=== PATIENT | female | born 1990 | race Caucasian/White ===

== ENCOUNTER 2018-02-07 11:47 | Emergency (ER) | payer MEDICAID, OTHER ==
[2018-02-07 12:00] VITALS: BP 137/71
[2018-02-07] MEDS ORDERED: ONDANSETRON 4 MG TAB.RAPDIS PO ONE (12:08)
--- NOTE | 2018-02-07 12:10 | ER Document Report ---
ED Medical Screen (RME) - General Chief Complaint: Vag Bleeding, +preg <12wks Stated Complaint: ABDOMINAL PAIN Time Seen by Provider: 02/07/18 12:05 Notes: RAPID MEDICAL EVALUATION DISCLOSURE I have seen this patient as part of a Rapid Medical Evaluation and, if applicable, placed any initially appropriate orders. The patient will be seen and fully evaluated, including a full history and physical exam, by a provider ( in Main ED or Fast Track) when a room becomes available. 27-year-old female (LMP December 27, 2017) here with complaints of lower abdominal pain and vaginal spotting that started earlier this morning. She has not taken anything for the pain. She does not actually have the pain at this time. She has not yet started following with an [employer]. Denies any fevers chills dysuria frequency vaginal discharge however has had some nausea vomiting for the past few weeks. She has had a positive home test. EXAM No abdominal TTP No peritoneal signs TRAVEL OUTSIDE OF THE [place] IN LAST 30 DAYS: No - Related Data Allergies/Adverse Reactions: morphine [Morphine] Adverse Reaction (Mild, Verified 02/07/18 11:48) Dystonia Past Medical History Past Surgical History: Reports: Hx Appendectomy, Hx Orthopedic Surgery - ankle - Immunizations Hx Diphtheria, Pertussis, Tetanus Vaccination: Yes Physical Exam - Vital signs Vitals: Temp Pulse Resp BP Pulse Ox 98.9 F 79 20 137/71 H 98 02/07/18 11:58 02/07/18 11:58 02/07/18 11:58 02/07/18 11:58 02/07/18 11:58 Course - Vital Signs Vital signs: Temp Pulse Resp BP Pulse Ox 98.9 F 79 20 137/71 H 98 02/07/18 11:58 02/07/18 11:58 02/07/18 11:58 02/07/18 11:58 02/07/18 11:58 Doctor's Discharge - Discharge Referrals: ALISHA BENOIT MD [Primary Care Provider] - Follow up as needed
--- NOTE | 2018-02-07 13:02 | ER Document Report ---
ED General - General Chief Complaint: Vag Bleeding, +preg <12wks Stated Complaint: ABDOMINAL PAIN Time Seen by Provider: 02/07/18 12:05 Mode of Arrival: Ambulatory Information source: Patient Notes: 27-year-old female 3 para 1 who found that she was one half weeks ago blood type O- presents with complaints of vaginal bleeding since 3:00 this morning. Patient admits to cramping sensation TRAVEL OUTSIDE OF THE [place] IN LAST 30 DAYS: No - HPI Onset: This morning Onset/Duration: Sudden Quality of pain: Cramping Severity: Mild Pain Level: 1 Associated symptoms: Other Exacerbated by: Denies Relieved by: Denies Similar symptoms previously: Yes - Miscarriage with last Recently seen / treated by doctor: No - Related Data Allergies/Adverse Reactions: morphine [Morphine] Adverse Reaction (Mild, Verified 02/07/18 11:48) Dystonia Past Medical History - Social History Smoking Status: Never Smoker Cigarette use (# per day): No Chew tobacco use (# tins/day): No Smoking Education Provided: No Frequency of alcohol use: None Drug Abuse: None Family History: Reviewed & Not Pertinent Patient has suicidal ideation: No Patient has homicidal ideation: No Renal/ Medical History: Denies: Hx Peritoneal Dialysis Past Surgical History: Reports: Hx Appendectomy, Hx Section, Hx Orthopedic Surgery - ankle - Immunizations Hx Diphtheria, Pertussis, Tetanus Vaccination: Yes Hx Pneumococcal Vaccination: 07/26/11 Review of Systems - Review of Systems Notes: REVIEW OF SYSTEMS: CONSTITUTIONAL : Denies fever, chills, or sweats. Denies recent illness. EENT: Denies eye, ear, throat, or mouth pain or symptoms. Denies nasal or sinus congestion or discharge. Denies throat, tongue, or mouth swelling or difficulty swallowing. CARDIOVASCULAR: Denies chest pain. Denies palpitations or racing or irregular heart beat. Denies ankle edema. RESPIRATORY: Denies cough, cold, or chest congestion. Denies shortness of breath, difficulty breathing, or wheezing. GASTROINTESTINAL: Denies abdominal pain or distention. Denies nausea, vomiting , or diarrhea. Denies blood in vomitus, stools, or per rectum. Denies black, tarry stools. Denies constipation. GENITOURINARY: Denies difficulty urinating, painful urination, burning, frequency, blood in urine, or discharge. FEMALE GENITOURINARY: Admits to vaginal bleeding MUSCULOSKELETAL: Denies back or neck pain or stiffness. Denies joint pain or swelling. SKIN: Denies rash, lesions or sores. HEMATOLOGIC : Denies easy bruising or bleeding. LYMPHATIC: Denies swollen, enlarged glands. NEUROLOGICAL: Denies confusion or altered mental status. Denies passing out or loss of consciousness. Denies dizziness or lightheadedness. Denies headache. Denies weakness or paralysis or loss of use of either side. Denies problems with gait or speech. Denies sensory loss, numbness, or tingling. Denies seizures. PSYCHIATRIC: Denies anxiety or stress. Denies depression, suicidal ideation, or homicidal ideation. ALL OTHER SYSTEMS REVIEWED AND NEGATIVE. PHYSICAL EXAMINATION: GENERAL: Well-appearing, well-nourished and in no acute distress. HEAD: Atraumatic, normocephalic. EYES: Pupils equal round and reactive to light, extraocular movements intact, conjunctiva are normal. ENT: Nares patent, oropharynx clear without exudates. Moist mucous membranes. NECK: Normal range of motion, supple without lymphadenopathy LUNGS: Breath sounds clear to auscultation bilaterally and equal. No wheezes rales or rhonchi. HEART: Regular rate and rhythm without murmurs ABDOMEN: Soft, nontender, nondistended abdomen. No guarding, no rebound. No masses appreciated. Female : deferred Musculoskeletal: Normal range of motion, no pitting or edema. No cyanosis. NEUROLOGICAL: Cranial nerves grossly intact. Normal speech, normal gait. Normal sensory, motor exams PSYCH: Normal mood, normal affect. SKIN: Warm, Dry, normal turgor, no rashes or lesions noted. Dictation was performed using [employer] voice recognition software Physical Exam - Vital signs Vitals: Temp Pulse Resp BP Pulse Ox 98.9 F 79 20 137/71 H 98 02/07/18 11:58 02/07/18 11:58 02/07/18 11:58 02/07/18 11:58 02/07/18 11:58 Course - Re-evaluation Re-evalutation: 02/07/18 13:02 Patient's presentation is most consistent with threatened miscarriage, RhoGam will be provided, lab work ultrasound pending 02/07/18 14:48 RhoGam has been ordered, ultrasound is consistent with an early IUP, quant is quite low and we will have the patient follow up in 48 hours for recheck After performing a Medical Screening Examination, I estimate there is LOW risk for ACUTE APPENDICITIS, BOWEL OBSTRUCTION, ACUTE CHOLECYSTITIS, PERFORATED DIVERTICULITIS, INCARCERATED HERNIA, PANCREATITIS, PELVIC INFLAMMATORY DISEASE, PERFORATED ULCER, ECTOPIC , or TUBO-OVARIAN ABSCESS, thus I consider the discharge disposition reasonable. Also, there is no evidence or peritonitis , sepsis, or toxicity. I have reevaluated this patient multiple times and no significant life threatening changes are noted. The patient and I have discussed the diagnosis and risks, and we agree with discharging home with close follow-up with the understanding that symptoms and presentations can change. We also discussed returning to the Emergency Department immediately if new or worsening symptoms occur. We have discussed the symptoms which are most concerning (e.g., bloody stool, fever, changing or worsening pain, vomiting) that necessitate immediate return. - Vital Signs Vital signs: Temp Pulse Resp BP Pulse Ox 98.9 F 79 20 137/71 H 98 02/07/18 11:58 02/07/18 11:58 02/07/18 11:58 02/07/18 11:58 02/07/18 11:58 - Laboratory Result Diagrams: 02/07/18 12:50 02/07/18 12:50 Laboratory results interpreted by me: 02/07/18 02/07/18 12:10 12:50 Sodium 145.3 H Chloride 109 H Beta HCG, Quant 120.01 H Urine Blood LARGE H - Diagnostic Test Radiology reviewed: Image reviewed Discharge - Discharge Clinical Impression: Threatened miscarriage Condition: Stable Disposition: HOME, SELF-CARE Instructions: Threatened Miscarriage ([facility]), Repeat Blood Test ([facility]) Forms: Follow-Up Laboratory Testing Referrals: ALISHA BENOIT MD [ACTIVE STAFF] - Follow up as needed
[2018-02-07 13:10] LABS: APPEARANCE,URINE CLEAR; BILIRUBIN,URINE NEGATIVE (NEGATIVE); COLOR,URINE YELLOW; GLUCOSE, URINE NEGATIVE (NEGATIVE); KETONES,URINE NEGATIVE (NEGATIVE); LEUKOCYTE ESTERASE,URINE NEGATIVE (NEGATIVE); NITRITE,URINE NEGATIVE (NEGATIVE); PROTEIN,URINE NEGATIVE (NEGATIVE); URINE SPECIFIC GRAVITY 1.013; UROBILINOGEN,URINE NEGATIVE mg/dL (<2.0)
[2018-02-07 13:11] LABS: ABSOLUTE LYMPHOCYTES (AUTO) 1.7 10^3/uL (0.5-4.7); ABSOLUTE MONOCYTES (AUTO) 0.4 10^3/uL (0.1-1.4); ABSOLUTE NEUT (AUTO) 4.5 10^3/uL (1.7-8.2); BASOPHILS % (AUTO) 0.4 % (0-2); EOSINOPHILS % (AUTO) 0.5 % (0-6); HEMATOCRIT 39.1 % (36.0-47.0); HEMOGLOBIN 13.2 g/dL (12.0-15.5); LYMPHOCYTES % (AUTO) 26.2 % (13-45); MEAN CORPUSCULAR HEMOGLOBIN 29.7 pg (27.0-33.4); MEAN CORPUSCULAR HGB CONC 33.7 g/dL (32.0-36.0); MEAN CORPUSCULAR VOLUME 88 fl (80-97); MONOCYTES % (AUTO) 5.7 % (3-13); PLATELET COUNT 212 10^3/uL (150-450); RED BLOOD COUNT 4.44 10^6/uL (3.72-5.28); RED CELL DISTRIBUTION WIDTH 13.2 % (11.5-14.0); SEGMENTED NEUTROPHILS % (AUTO) 67.2 % (42-78); TOTAL CELLS COUNTED % (AUTO) 100 %; WHITE BLOOD COUNT 6.6 10^3/uL (4.0-10.5)
[2018-02-07 13:27] LABS: ANION GAP 10 (5-19); BLOOD UREA NITROGEN 7 mg/dL (7-20); CALCIUM 9.1 mg/dL (8.4-10.2); CARBON DIOXIDE 26 mmol/L (22-30); CHLORIDE 109 mmol/L (98-107); GLUCOSE 95 mg/dL (75-110); SODIUM 145.3 mmol/L (137-145)
--- NOTE | 2018-02-07 14:02 | RADIOLOGY REPORT (SQ) ---
EXAM DESCRIPTION: U/S OB TRANSVAGINAL W/O DOP COMPLETED DATE/TIME: 02/07/2018 12:57 pm REASON FOR STUDY: abd pain bleeding, preg COMPARISON: None. TECHNIQUE: Transvaginal and transabdominal static and realtime grayscale images acquired of the pelv is. Additional selected spectral and color Doppler images recorded. All images stored on PACs. bHCG: Not available. CLINICAL DATES: CLARITA: 10/03/2018 EGA: 6 weeks 0 day LIMITATIONS: None. FINDINGS: FETUS: Living intrauterine . ULTRASOUND EGA: 5 weeks 0 days ULTRASOUND CLARITA: 10/10/2018 CRL: Not obtained FHR: Not visualized SUBCHORIONIC BLEED: Yes SIZE OF BLEED: Small UTERUS: The uterus measures 9.3 x 4.6 x 4.3 cm. The gestational sac is visualized. The yolk sac an d crown-rump length were not measured; these structures were not visualized. CERVICAL LENGTH: 3.0 cm. Closed. RIGHT ADNEXA: The right ovary measures 2.8 x 2.3 x 1.7 cm. Normal ovary with normal vascular flow. No adnexal free fluid. No adnexal masses LEFT ADNEXA: The left ovary measures 2.9 x 2.0 x 2.0 cm. Normal ovary with normal vascular flow. D ominant follicle measures 1.0 cm. No adnexal free fluid. No adnexal masses. FREE FLUID: Small amount of free fluid posterior to the uterus. OTHER: Small complex nabothian cyst in the cervix region. IMPRESSION: 1 An intrauterine gestational sac is visualized. The yolk sac and crown-rump length wer e not measured;, these structures were not visualized. EGA 5 weeks 0 days 2. Please see above findings. Trimester of : First - 0 to 13 weeks. TECHNICAL DOCUMENTATION: JOB ID: [id number] [employer]- All Rights Reserved Reading location - IP/workstation name: [email or web address]
== END 2018-02-07 14:58 | disposition home or self-care (01) ==
LOC: ER 11:47
DX: O20.0 Threatened abortion (principal); Z3A.00 Weeks of gestation of pregnancy not specified
CPT/HCPCS: 99284; 86900; 86901; 36415; 86850; 84702; 85025; 80048; 81001; 76817; J2790; S0119

== ENCOUNTER → 2018-02-09 | Outpatient (CLI) | payer MEDICAID | LOC: LAB 14:46 | PROVIDERS: ATTEND Emergency Medicine | DX: N93.9 Abnormal uterine and vaginal bleeding, unspecified (principal) | CPT/HCPCS: 36415; 84702 ==

== ENCOUNTER 2018-02-20 18:54 | Emergency (ER) | payer MEDICAID ==
[2018-02-20 19:02] VITALS: BP 115/63
[2018-02-20] MEDS ORDERED: NAPROXEN 250 MG TABLET PO ONE (19:57)
--- NOTE | 2018-02-20 20:23 | ER Document Report ---
ED Extremity Problem, Upper - General Chief Complaint: Shoulder Pain Stated Complaint: SHOULDER PAIN Time Seen by Provider: 02/20/18 19:44 TRAVEL OUTSIDE OF THE [place] IN LAST 30 DAYS: No - HPI Notes: 27-year-old female presents with left-sided shoulder and clavicle pain. Patient has a history of similar presentation a couple years ago remotely, but no injury. Denies any new injury. Describes pain in her medial mid clavicle as well as her anteromedial shoulder. Worse with motion. Throbbing achy, sometimes sharp. No fever, no trauma, no unplanned weight loss. No other neurologic or vasculitis type symptoms. No other modifying factors, no other associated symptoms, no other provocative or palliative factors. - Related Data Allergies/Adverse Reactions: morphine [Morphine] Adverse Reaction (Mild, Verified 02/20/18 19:38) Dystonia Past Medical History - Social History Smoking Status: Never Smoker Frequency of alcohol use: None Drug Abuse: None Family History: Reviewed & Not Pertinent Patient has suicidal ideation: No Patient has homicidal ideation: No Renal/ Medical History: Denies: Hx Peritoneal Dialysis Past Surgical History: Reports: Hx Appendectomy, Hx Section, Hx Orthopedic Surgery - ankle - Immunizations Hx Diphtheria, Pertussis, Tetanus Vaccination: Yes Hx Pneumococcal Vaccination: 07/26/11 Review of Systems - Review of Systems Notes: Review of systems as in the history of present illness, otherwise negative x 10 systems. Physical Exam - Vital signs Vitals: Temp Pulse Resp BP Pulse Ox 98.5 F 79 18 115/63 100 02/20/18 19:00 02/20/18 19:00 02/20/18 19:00 02/20/18 19:00 02/20/18 19:00 - Notes Notes: General: Well devloped, no acute distress. HEENT: Normocephalic, atraumatic. Pupils equal round reactive to light. Mucosa moist. No JVD. Chest: No trauma, normal excursion. Respiratory: Good air exchange, normal excursion. Cardiac: Regular rhythm Abdomen: Soft, benign. Nondistended. Back: No asymmetry or gross abnormality. Motor: Grossly normal power and tone. Neurologic: Alert, nonfocal. Vascular: Well perfused Skin: No petechiae or purpura Evaluation of the left clavicle and shoulder show point tenderness about the medial clavicle, mid clavicle and anterolateral shoulder. Range of motion is limited by pain in abduction. No pain or limitation with external and internal rotation or flexion and extension Course - Re-evaluation Re-evalutation: 02/20/18 20:22 Well-appearing female with pain in the shoulder and clavicle unclear etiology. I will obtain plain films to rule out bony lesion. Otherwise there is no warmth or erythema, I think septic arthritis is unlikely. This point will treat with an NSAID, outpatient follow-up. 02/20/18 20:38 Plain films are unremarkable. Discharged home with a prescription for naproxen , outpatient follow-up. - Vital Signs Vital signs: Temp Pulse Resp BP Pulse Ox 98.5 F 79 18 115/63 100 02/20/18 19:00 02/20/18 19:00 02/20/18 19:00 02/20/18 19:00 02/20/18 19:00 Discharge - Discharge Clinical Impression: Pain in joint, shoulder region Qualifiers: Laterality: left Qualified Code(s): M25.512 - Pain in left shoulder Condition: Good Disposition: HOME, SELF-CARE Instructions: Myofascial Pain ([facility]), Pain Management Prescriptions: Naproxen 500 mg PO Q12 PRN #12 tablet PRN Reason: Referrals: INEZ PELLETIER MD [Primary Care Provider] - Follow up in 3-5 days
--- NOTE | 2018-02-20 20:36 | RADIOLOGY REPORT (SQ) ---
EXAM DESCRIPTION: CLAVICLE LEFT COMPLETED DATE/TIME: 02/20/2018 8:14 pm REASON FOR STUDY: pain COMPARISON: None. NUMBER OF VIEWS: Two views. TECHNIQUE: Frontal and angled images were acquired of the left clavicle. LIMITATIONS: None. FINDINGS: MINERALIZATION: Normal. BONES: No acute fracture or dislocation. No worrisome bone lesions. SOFT TISSUES: No obvious swelling or foreign body. OTHER: No other significant finding. IMPRESSION: NO RADIOGRAPHIC EVIDENCE OF ACUTE INJURY. TECHNICAL DOCUMENTATION: JOB ID: [id number] [place]-72 2010 [employer]- All Rights Reserved Reading location - IP/workstation name: [email or web address]
--- NOTE | 2018-02-20 20:40 | RADIOLOGY REPORT (SQ) ---
EXAM DESCRIPTION: SHOULDER LEFT 2 OR MORE VIEWS COMPLETED DATE/TIME: 02/20/2018 8:14 pm REASON FOR STUDY: pain COMPARISON: None. NUMBER OF VIEWS: Three views. TECHNIQUE: Internal rotation, external rotation, and Y view images acquired of the left shoulder. LIMITATIONS: None. FINDINGS: MINERALIZATION: Normal. BONES: No acute fracture or dislocation. No worrisome bone lesions. JOINTS: No dislocation. VISUALIZED LUNGS AND RIBS: No pneumothorax. No rib fracture. SOFT TISSUES: No radiopaque foreign body. OTHER: No other significant finding. IMPRESSION: NO RADIOGRAPHIC EVIDENCE OF ACUTE INJURY. TECHNICAL DOCUMENTATION: JOB ID: [id number] [place]-72 2010 [employer]- All Rights Reserved Reading location - IP/workstation name: [email or web address]
== END 2018-02-20 20:52 | disposition home or self-care (01) ==
LOC: ER 18:54
DX: M25.512 Pain in left shoulder (principal); M89.8X8 Other specified disorders of bone, other site
CPT/HCPCS: 99283; 73000; 73030; J3490

== ENCOUNTER 2018-03-22 12:47 | Emergency (ER) | payer MEDICAID ==
[2018-03-22] MEDS ORDERED: ONDANSETRON 4 MG TAB.RAPDIS PO ONE (13:58)
--- NOTE | 2018-03-22 14:00 | ER Document Report ---
ED Medical Screen (RME) - General Chief Complaint: Nausea/Vomiting/Diarrhea Stated Complaint: VOMITING,DIARRHEA,NAUSEA Time Seen by Provider: 03/22/18 13:49 Notes: RAPID MEDICAL EVALUATION DISCLOSURE I have seen this patient as part of a Rapid Medical Evaluation and, if applicable, placed any initially appropriate orders. The patient will be seen and fully evaluated, including a full history and physical exam, by a provider ( in Main ED or Fast Track) when a room becomes available. 27-year-old female here with 2 weeks of nausea vomiting diarrhea and epigastric abdominal pain. The abdominal pain has been intermittent. It is not worse with eating. In fact, yesterday she ate a chicken biscuit and states that this improved her symptoms. She has not had any fevers chills dysuria hematuria frequency. She did recently undergo a miscarriage however denies any lower abdominal pain vaginal bleeding discharge. Has a family history of gallbladder disease. EXAM Moderate epigastric TTP Mild right/left upper quadrant TTP No peritoneal signs TRAVEL OUTSIDE OF THE [place] IN LAST 30 DAYS: No - Related Data Allergies/Adverse Reactions: morphine [Morphine] Adverse Reaction (Mild, Verified 03/22/18 12:48) Dystonia Past Medical History - Social History Chew tobacco use (# tins/day): No Frequency of alcohol use: None Drug Abuse: None Renal/ Medical History: Denies: Hx Peritoneal Dialysis Past Surgical History: Reports: Hx Appendectomy, Hx Section, Hx Orthopedic Surgery - R ankle, spine - Immunizations Hx Diphtheria, Pertussis, Tetanus Vaccination: Yes Physical Exam - Vital signs Vitals: Temp Pulse Resp BP Pulse Ox 97.9 F 63 16 119/67 97 03/22/18 12:53 03/22/18 12:53 03/22/18 12:53 03/22/18 12:53 03/22/18 12:53 Course - Vital Signs Vital signs: Temp Pulse Resp BP Pulse Ox 97.9 F 63 16 119/67 97 03/22/18 12:53 03/22/18 12:53 03/22/18 12:53 03/22/18 12:53 03/22/18 12:53 Doctor's Discharge - Discharge Referrals: INEZ PELLETIER MD [Primary Care Provider] - Follow up as needed
[2018-03-22 14:48] LABS: ABSOLUTE EOSINOPHILS # (AUTO) 0.1 10^3/uL (0.0-0.6); ABSOLUTE LYMPHOCYTES (AUTO) 2.3 10^3/uL (0.5-4.7); ABSOLUTE MONOCYTES (AUTO) 0.4 10^3/uL (0.1-1.4); ABSOLUTE NEUT (AUTO) 3.2 10^3/uL (1.7-8.2); BASOPHILS % (AUTO) 0.6 % (0-2); EOSINOPHILS % (AUTO) 1.4 % (0-6); HEMATOCRIT 41.2 % (36.0-47.0); LYMPHOCYTES % (AUTO) 38.1 % (13-45); MEAN CORPUSCULAR HEMOGLOBIN 29.8 pg (27.0-33.4); MEAN CORPUSCULAR HGB CONC 34.1 g/dL (32.0-36.0); MEAN CORPUSCULAR VOLUME 87 fl (80-97); MONOCYTES % (AUTO) 6.9 % (3-13); PLATELET COUNT 229 10^3/uL (150-450); RED BLOOD COUNT 4.71 10^6/uL (3.72-5.28); TOTAL CELLS COUNTED % (AUTO) 100 %
[2018-03-22 14:51] LABS: APPEARANCE,URINE SLIGHTLY-CLOUDY; BILIRUBIN,URINE NEGATIVE (NEGATIVE); COLOR,URINE YELLOW; GLUCOSE, URINE NEGATIVE (NEGATIVE); KETONES,URINE NEGATIVE (NEGATIVE); LEUKOCYTE ESTERASE,URINE SMALL (NEGATIVE); NITRITE,URINE NEGATIVE (NEGATIVE); PROTEIN,URINE NEGATIVE (NEGATIVE); URINE SPECIFIC GRAVITY 1.023; UROBILINOGEN,URINE NEGATIVE mg/dL (<2.0)
[2018-03-22 15:10] LABS: ALANINE AMINOTRANSFERASE 27 U/L (9-52); ALBUMIN 4.3 g/dL (3.5-5.0); ALKALINE PHOSPHATASE 69 U/L (38-126); ANION GAP 11 (5-19); ASPARTATE AMINO TRANSFERASE 22 U/L (14-36); BILIRUBIN,DIRECT 0.2 mg/dL (0.0-0.4); BILIRUBIN,TOTAL 0.4 mg/dL (0.2-1.3); BLOOD UREA NITROGEN 8 mg/dL (7-20); CALCIUM 9.3 mg/dL (8.4-10.2); CARBON DIOXIDE 24 mmol/L (22-30); CHLORIDE 108 mmol/L (98-107); GLUCOSE 84 mg/dL (75-110); POTASSIUM 4.3 mmol/L (3.6-5.0); SODIUM 142.7 mmol/L (137-145); TOTAL PROTEIN 7.7 g/dL (6.3-8.2)
--- NOTE | 2018-03-22 17:23 | ER Document Report ---
ED General - General Chief Complaint: Nausea/Vomiting/Diarrhea Stated Complaint: VOMITING,DIARRHEA,NAUSEA Time Seen by Provider: 03/22/18 13:49 Notes: 27-year-old female patient emergency department chief complaint of nausea vomiting and abdominal pain. Pain sometimes radiates up into her right shoulder. Symptoms began after she had a miscarriage recently. Getting worse in the right upper quadrant. Having nausea on and off for approximately 1 month but she associated that with her . did come in today because symptoms were too unbearable. TRAVEL OUTSIDE OF THE [place] IN LAST 30 DAYS: No - HPI Onset/Duration: Gradual, Constant Quality of pain: Achy Severity: Moderate Pain Level: 2 Associated symptoms: Diarrhea, Nausea, Vomiting - Related Data Allergies/Adverse Reactions: morphine [Morphine] Adverse Reaction (Mild, Verified 03/22/18 12:48) Dystonia Past Medical History - General Information source: Patient - Social History Smoking Status: Never Smoker Chew tobacco use (# tins/day): No Frequency of alcohol use: None Drug Abuse: None Lives with: Spouse/Significant other Family History: Reviewed & Not Pertinent Patient has suicidal ideation: No Patient has homicidal ideation: No Renal/ Medical History: Denies: Hx Peritoneal Dialysis Past Surgical History: Reports: Hx Appendectomy, Hx Section, Hx Orthopedic Surgery - R ankle, spine - Immunizations Hx Diphtheria, Pertussis, Tetanus Vaccination: Yes Hx Pneumococcal Vaccination: 07/26/11 Review of Systems - Review of Systems Notes: Constitutional: denies: Chills, Diaphoresis, Fever, Malaise, Weakness EENT: denies: Eye discharge, Blurred vision, Tearing, Double vision, Nose congestion, Nose discharge, Throat swelling, Mouth pain Cardiovascular: denies: Palpitations, Heart racing, Orthopnea, Dyspnea, Chest pain Respiratory: denies: Cough, Hurts to breathe, Wheezing, Shortness of breath Gastrointestinal: Complaining of abdominal pain, epigastric pain, nausea, vomiting as well as diarrhea. Genitourinary: denies: Burning, Dysuria, Discharge, Frequency, Flank pain, Hematuria. Did have recent miscarriage Musculoskeletal: denies: Joint pain, Joint swelling, Muscle pain, Muscle stiffness, back pain Hematologic/Lymphatic: denies: Anemia, Easy bleeding, Easy bruising, Blood clots Neurological/Psychological: denies: Confusion, Dementia, Depression, Loss of consciousness Skin: No lesions, no masses, no skin breakdown, no abscesses Physical Exam - Vital signs Vitals: Temp Pulse Resp BP Pulse Ox 97.9 F 63 16 119/67 97 03/22/18 12:53 03/22/18 12:53 03/22/18 12:53 03/22/18 12:53 03/22/18 12:53 Interpretation: Normal - General General appearance: Appears well, Alert - HEENT Head: Normocephalic, Atraumatic Eyes: Normal Pupils: PERRL - Respiratory Respiratory status: No respiratory distress Chest status: Nontender Breath sounds: Normal Chest palpation: Normal - Cardiovascular Rhythm: Regular Heart sounds: Normal auscultation Murmur: No - Abdominal Inspection: Normal Distension: No distension Bowel sounds: Normal Tenderness: Other - Some mild tenderness to palpation in the right upper quadrant and epigastric region. No guarding or rebound. Organomegaly: No organomegaly - Back Back: Normal, Nontender - Extremities General upper extremity: Normal inspection, Nontender, Normal color, Normal ROM , Normal temperature General lower extremity: Normal inspection, Nontender, Normal color, Normal ROM , Normal temperature, Normal weight bearing. No: Christy's sign - Neurological Neuro grossly intact: Yes Cognition: Normal Orientation: AAOx4 Na Coma Scale Eye Opening: Spontaneous Willis Coma Scale Verbal: Oriented Na Coma Scale Motor: Obeys Commands Willis Coma Scale Total: 15 Speech: Normal Motor strength normal: LUE, RUE, LLE, RLE Sensory: Normal - Psychological Associated symptoms: Normal affect, Normal mood - Skin Skin Temperature: Warm Skin Moisture: Dry Skin Color: Normal Course - Re-evaluation Re-evalutation: 03/22/18 20:20 Laboratory 03/22/18 03/22/18 03/22/18 14:20 14:20 14:20 WBC 6.0 RBC 4.71 Hgb 14.0 Hct 41.2 MCV 87 MCH 29.8 MCHC 34.1 RDW 13.0 Plt Count 229 Seg Neutrophils % 53.0 Lymphocytes % 38.1 Monocytes % 6.9 Eosinophils % 1.4 Basophils % 0.6 Absolute Neutrophils 3.2 Absolute Lymphocytes 2.3 Absolute Monocytes 0.4 Absolute Eosinophils 0.1 Absolute Basophils 0.0 Sodium 142.7 Potassium 4.3 Chloride 108 H Carbon Dioxide 24 Anion Gap 11 BUN 8 Creatinine 0.77 Est GFR ( Amer) > 60 Est GFR (Non-Af Amer) > 60 Glucose 84 Calcium 9.3 Total Bilirubin 0.4 Direct Bilirubin 0.2 Neonat Total Bilirubin Not Reportable Neonat Direct Bilirubin Not Reportable Neonat Indirect Bili Not Reportable AST 22 ALT 27 Alkaline Phosphatase 69 Total Protein 7.7 Albumin 4.3 Lipase 89.0 Beta HCG, Quant < 2.39 Total Beta HCG NEGATIVE Urine Color YELLOW Urine Appearance SLIGHTLY-CLOUDY Urine pH 7.0 Ur Specific [place] 1.023 Urine Protein NEGATIVE Urine Glucose (UA) NEGATIVE Urine Ketones NEGATIVE Urine Blood NEGATIVE Urine Nitrite NEGATIVE Urine Bilirubin NEGATIVE Urine Urobilinogen NEGATIVE Ur Leukocyte Esterase SMALL H Urine WBC (Auto) 5 Urine RBC (Auto) 4 Squamous Epi Cells Auto 10 Urine Mucus (Auto) RARE Urine Ascorbic Acid NEGATIVE Abdomen Ultrasound 03/22/18 18:40 IMPRESSION: There may be a small gallbladder polyp. The study is otherwise normal. Ultrasound fairly unremarkable. Labs unremarkable. HCG back to normal. Lipase not elevated. Nontoxic-appearing female in no acute distress. I am going to recommend that she get good outpatient follow-up as this still could represent her gallbladder and she may benefit from having a HIDA scan. I may give her the information with regards to HIDA scan as well. At this time find nothing further. Patient will need outpatient workup completed. I have advised her to return in 24 hours or less if symptoms get worse, she developed a fever or for any other concerns. - Vital Signs Vital signs: Temp Pulse Resp BP Pulse Ox 98.6 F 55 L 16 126/77 H 100 03/22/18 18:43 03/22/18 18:43 03/22/18 18:43 03/22/18 18:43 03/22/18 18:43 - Laboratory Result Diagrams: 03/22/18 14:20 03/22/18 14:20 Laboratory results interpreted by me: 03/22/18 03/22/18 14:20 14:20 Chloride 108 H Ur Leukocyte Esterase SMALL H Discharge - Discharge Clinical Impression: Right upper quadrant pain Condition: Good Disposition: HOME, SELF-CARE Instructions: Evaluation of Upper Abdominal Pain ([facility]) Additional Instructions: Even though your workup today was negative you will likely need more workup. If you do not have a primary care provider please follow-up with the provider divided below. You may also wish to contact a general surgeon that is provided below to see if this workup could be completed by them as well. Often times a right upper quadrant abdominal pain is a developing gallbladder issue which will need to be addressed by surgeon. In the event that symptoms are getting worse in the next 24 hours, not getting better or if you develop a fever please return immediately for repeat evaluation as these things can be very difficult to diagnose initially. Prescriptions: Hydrocodone/Acetaminophen [[place] 5-325 mg Tablet] 1 tab PO TID PRN 3 Days #9 tablet PRN Reason: Ondansetron [Zofran Odt 4 mg Tablet] 1 - 2 tab PO Q4H PRN #15 tab.rapdis PRN Reason: For Nausea/Vomiting Forms: Return to Work Referrals: INEZ PELLETIER MD [Primary Care Provider] - Follow up tomorrow ALISHA HARDY MD [ACTIVE STAFF] - Follow up in 1 week
--- NOTE | 2018-03-22 19:43 | RADIOLOGY REPORT (SQ) ---
EXAM DESCRIPTION: U/S ABDOMEN LIMITED W/O DOP COMPLETED DATE/TIME: 03/22/2018 7:23 pm REASON FOR STUDY: right upper quadrant pain COMPARISON: None. TECHNIQUE: Dynamic and static grayscale images acquired of the abdomen and recorded on PACS. Additio nal selected color Doppler and spectral images recorded. LIMITATIONS: None. FINDINGS: PANCREAS: No masses. Visualized pancreatic duct normal caliber. LIVER: No masses. Echotexture normal. LIVER VASCULATURE: Normal directional flow of the main portal vein and hepatic veins. GALLBLADDER: No stones. Question small polyp. ULTRASOUND-DETECTED SHERWOOD'S SIGN: Negative. INTRAHEPATIC DUCTS AND COMMON DUCT: CBD and intrahepatic ducts normal caliber. No filling defects. INFERIOR VENA CAVA: Not imaged. AORTA: No aneurysm. RIGHT KIDNEY: Normal size. Normal echogenicity. No solid or suspicious masses. No hydronephrosis. No calcifications. PERITONEAL AND RIGHT PLEURAL SPACE: No ascites or effusions. OTHER: No other significant findings. IMPRESSION: There may be a small gallbladder polyp. The study is otherwise normal. TECHNICAL DOCUMENTATION: JOB ID: [id number] [employer]- All Rights Reserved Reading location - IP/workstation name: [email or web address]
[2018-03-22 20:46] VITALS: BP 126/82
== END 2018-03-22 20:48 | disposition home or self-care (01) ==
LOC: ER 12:47
DX: R10.11 Right upper quadrant pain (principal); R11.2 Nausea with vomiting, unspecified; R19.7 Diarrhea, unspecified; R10.13 Epigastric pain; Z87.59 Personal history of other complications of pregnancy, childbirth and the puerperium
CPT/HCPCS: 99284; 36415; 84702; 83690; 85025; 80053; 81001; 76705; S0119

== ENCOUNTER 2018-05-06 10:59 | Emergency (ER) | payer SELFPAY ==
--- NOTE | 2018-05-06 11:35 | ER Document Report ---
ED Medical Screen (RME) - General Chief Complaint: Vomiting Stated Complaint: FEVER, VOMITING Time Seen by Provider: 05/06/18 11:33 Mode of Arrival: Ambulatory Information source: Patient TRAVEL OUTSIDE OF THE [place] IN LAST 30 DAYS: No - HPI Patient complains to provider of: coough, vomiting Onset: Other - pt. states she has had coughing and intermittent vomiting for the past 9 days. Denies diarrhea - Related Data Allergies/Adverse Reactions: morphine [Morphine] Adverse Reaction (Mild, Verified 03/22/18 12:48) Dystonia Past Medical History - Social History Frequency of alcohol use: None Drug Abuse: None Renal/ Medical History: Denies: Hx Peritoneal Dialysis Past Surgical History: Reports: Hx Appendectomy, Hx Section, Hx Orthopedic Surgery - R ankle, spine - Immunizations Hx Diphtheria, Pertussis, Tetanus Vaccination: Yes Physical Exam - Vital signs Vitals: Temp Pulse Resp BP Pulse Ox 98.6 F 82 20 117/86 H 97 05/06/18 11:11 05/06/18 11:11 05/06/18 11:11 05/06/18 11:11 05/06/18 11:11 Course - Vital Signs Vital signs: Temp Pulse Resp BP Pulse Ox 98.6 F 82 20 117/86 H 97 05/06/18 11:11 05/06/18 11:11 05/06/18 11:11 05/06/18 11:11 05/06/18 11:11 Doctor's Discharge - Discharge Referrals: INEZ PELLETIER MD [Primary Care Provider] - Follow up as needed
[2018-05-06 11:55] LABS: ABSOLUTE BASOPHILS # (AUTO) 0.1 10^3/uL (0.0-0.2); ABSOLUTE EOSINOPHILS # (AUTO) 0.1 10^3/uL (0.0-0.6); ABSOLUTE MONOCYTES (AUTO) 0.4 10^3/uL (0.1-1.4); ABSOLUTE NEUT (AUTO) 6.8 10^3/uL (1.7-8.2); BASOPHILS % (AUTO) 0.7 % (0-2); EOSINOPHILS % (AUTO) 0.6 % (0-6); HEMATOCRIT 41.9 % (36.0-47.0); HEMOGLOBIN 14.7 g/dL (12.0-15.5); LYMPHOCYTES % (AUTO) 21.7 % (13-45); MEAN CORPUSCULAR HEMOGLOBIN 30.3 pg (27.0-33.4); MEAN CORPUSCULAR VOLUME 86 fl (80-97); MONOCYTES % (AUTO) 4.1 % (3-13); PLATELET COUNT 241 10^3/uL (150-450); RED BLOOD COUNT 4.84 10^6/uL (3.72-5.28); RED CELL DISTRIBUTION WIDTH 12.8 % (11.5-14.0); SEGMENTED NEUTROPHILS % (AUTO) 72.9 % (42-78); TOTAL CELLS COUNTED % (AUTO) 100 %; WHITE BLOOD COUNT 9.3 10^3/uL (4.0-10.5)
[2018-05-06 11:58] LABS: APPEARANCE,URINE CLOUDY; BILIRUBIN,URINE NEGATIVE (NEGATIVE); COLOR,URINE YELLOW; GLUCOSE, URINE NEGATIVE (NEGATIVE); KETONES,URINE NEGATIVE (NEGATIVE); LEUKOCYTE ESTERASE,URINE LARGE (NEGATIVE); NITRITE,URINE NEGATIVE (NEGATIVE); PROTEIN,URINE NEGATIVE (NEGATIVE); URINE SPECIFIC GRAVITY 1.025; UROBILINOGEN,URINE NEGATIVE mg/dL (<2.0)
--- NOTE | 2018-05-06 12:03 | RADIOLOGY REPORT (SQ) ---
EXAM DESCRIPTION: CHEST 2 VIEWS COMPLETED DATE/TIME: 05/06/2018 11:52 am REASON FOR STUDY: cough COMPARISON: None. EXAM PARAMETERS: NUMBER OF VIEWS: two views TECHNIQUE: Digital Frontal and Lateral radiographic views of the chest acquired. RADIATION DOSE: NA LIMITATIONS: none FINDINGS: LUNGS AND PLEURA: No opacities, masses or pneumothorax. No pleural effusion. MEDIASTINUM AND HILAR STRUCTURES: No masses or contour abnormalities. HEART AND VASCULAR STRUCTURES: Heart normal size. No evidence for failure. BONES: No acute findings. Convex rightward thoracic curvature HARDWARE: None in the chest. OTHER: No other significant finding. IMPRESSION: NO ACUTE RADIOGRAPHIC FINDING IN THE CHEST. TECHNICAL DOCUMENTATION: JOB ID: [id number] [employer]- All Rights Reserved Reading location - IP/workstation name: [email or web address]
[2018-05-06 12:13] LABS: ALANINE AMINOTRANSFERASE 26 U/L (9-52); ALBUMIN 4.4 g/dL (3.5-5.0); ALKALINE PHOSPHATASE 60 U/L (38-126); ANION GAP 12 (5-19); ASPARTATE AMINO TRANSFERASE 24 U/L (14-36); BILIRUBIN,DIRECT 0.1 mg/dL (0.0-0.4); BILIRUBIN,TOTAL 0.5 mg/dL (0.2-1.3); BLOOD UREA NITROGEN 11 mg/dL (7-20); CALCIUM 9.8 mg/dL (8.4-10.2); CARBON DIOXIDE 22 mmol/L (22-30); CHLORIDE 107 mmol/L (98-107); GLUCOSE 90 mg/dL (75-110); POTASSIUM 4.2 mmol/L (3.6-5.0); SODIUM 141.4 mmol/L (137-145); TOTAL PROTEIN 7.8 g/dL (6.3-8.2)
[2018-05-06 12:37] VITALS: BP 121/83
--- NOTE | 2018-05-27 10:36 | ER Document Report ---
ED GI/ - General Chief Complaint: Vomiting Stated Complaint: FEVER, VOMITING Time Seen by Provider: 05/06/18 11:33 Mode of Arrival: Ambulatory TRAVEL OUTSIDE OF THE [place] IN LAST 30 DAYS: No - HPI Patient complains to provider of: Vomiting - pt with c/o coughing and intermittent vomiting for the past 9 days. Denies diarrhea - Related Data Allergies/Adverse Reactions: morphine [Morphine] Adverse Reaction (Mild, Verified 03/22/18 12:48) Dystonia Past Medical History - General Information source: Patient - Social History Smoking Status: Never Smoker Frequency of alcohol use: None Drug Abuse: None Family History: Reviewed & Not Pertinent Patient has suicidal ideation: No Patient has homicidal ideation: No Renal/ Medical History: Denies: Hx Peritoneal Dialysis Past Surgical History: Reports: Hx Appendectomy, Hx Section, Hx Orthopedic Surgery - R ankle, spine - Immunizations Hx Diphtheria, Pertussis, Tetanus Vaccination: Yes Hx Pneumococcal Vaccination: 07/26/11 Review of Systems - Review of Systems Constitutional: No symptoms reported Cardiovascular: No symptoms reported Respiratory: See HPI, Cough Gastrointestinal: See HPI, Vomiting -: Yes All other systems reviewed and negative Physical Exam - Vital signs Vitals: Temp Pulse Resp BP Pulse Ox 98.6 F 82 20 117/86 H 97 05/06/18 11:11 05/06/18 11:11 05/06/18 11:11 05/06/18 11:11 05/06/18 11:11 - General General appearance: Appears well In distress: None - HEENT Pharynx: Normal Neck: Normal - Respiratory Respiratory status: No respiratory distress Breath sounds: Normal - Cardiovascular Rhythm: Regular Heart sounds: Normal auscultation - Abdominal Inspection: Normal Distension: No distension Bowel sounds: Normal Tenderness: Nontender Organomegaly: No organomegaly Course - Vital Signs Vital signs: Temp Pulse Resp BP Pulse Ox 98.5 F 74 20 121/83 98 05/06/18 12:36 05/06/18 12:36 05/06/18 11:11 05/06/18 12:36 05/06/18 12:36 - Laboratory Result Diagrams: 05/06/18 11:42 05/06/18 11:42 Laboratory results interpreted by me: 05/06/18 10:30 Ur Leukocyte Esterase LARGE H - Diagnostic Test Radiology reviewed: Reports reviewed - cxr- wnl Discharge - Discharge Clinical Impression: Upper respiratory infection Qualifiers: URI type: unspecified URI Qualified Code(s): J06.9 - Acute upper respiratory infection, unspecified Vomiting Qualifiers: Vomiting type: unspecified Vomiting Intractability: non-intractable Nausea presence: unspecified Qualified Code(s): R11.10 - Vomiting, unspecified Condition: Stable Disposition: HOME, SELF-CARE Instructions: Upper Respiratory Illness ([facility]) Additional Instructions: resst, take meds as prescribed, return if worse Prescriptions: Cephalexin Monohydrate [Keflex 500 mg Capsule] 500 mg PO QID #20 capsule Promethazine HCl [Phenergan 25 mg Tablet] 25 - 50 mg PO ASDIR PRN #12 tablet PRN Reason: Referrals: INEZ PELLETIER MD [EMERITUS] - Follow up as needed
== END 2018-05-06 12:43 | disposition home or self-care (01) ==
LOC: ER 10:59
DX: R11.10 Vomiting, unspecified (principal); J06.9 Acute upper respiratory infection, unspecified; R05 Cough; Z90.49 Acquired absence of other specified parts of digestive tract
CPT/HCPCS: 36415; 71046; 80053; 81001; 81025; 85025; 99284

== ENCOUNTER 2018-07-11 12:27 | Emergency (ER) | payer SELFPAY ==
[2018-07-11] MEDS ORDERED: RINGERS SOLUTION,LACTATED 1,000 ML IV ONE (14:13)
[2018-07-11] MEDS ORDERED: ONDANSETRON HCL INJ/PF 4 MG/2 ML SDV IV ONE (14:13)
[2018-07-11] MEDS ORDERED: ONDANSETRON 4 MG TAB.RAPDIS ONE (14:14)
--- NOTE | 2018-07-11 14:17 | ER Document Report ---
ED General <EMILY ÁLVAREZ - Last Filed: 07/11/18 15:48> - General Mode of Arrival: Ambulatory Information source: Patient, Relative, [facility] Records TRAVEL OUTSIDE OF THE [place] IN LAST 30 DAYS: No - HPI Onset: Other Onset/Duration: Intermittent Quality of pain: No pain Associated symptoms: Headache, Nausea, Vomiting. denies: Fever Exacerbated by: Denies Relieved by: Denies Similar symptoms previously: Yes Recently seen / treated by doctor: No <CINDY RICHTER - Last Filed: 07/11/18 20:19> - General Chief Complaint: Suicidal Ideation Stated Complaint: PSYCH PROBLEM Time Seen by Provider: 07/11/18 14:07 Notes: 27-year-old female with history of depression presents with complaint of worsening depression, thoughts of suicide. Patient denies any specific plan. She states that she could never harm herself because she has a son but that the thoughts are more persistent than they have been in the past. Patient has been in therapy for her depression but denies any medication for depression. Patient has recently reported increased stress with [place] damage to her home causing her to have to move in with her mother. She reports problems with her car and a recent divorce and a miscarriage. Patient has had persistent nausea and vomiting for approximately 2 weeks. She denies any abdominal pain. Patient admits to daily marijuana use to help her sleep. (CINDY RICHTER) - Related Data Allergies/Adverse Reactions: morphine [Morphine] Adverse Reaction (Mild, Verified 07/11/18 12:27) Dystonia Past Medical History - General Information source: Patient, Relative, [facility] Records - Social History Smoking Status: Former Smoker Frequency of alcohol use: None Drug Abuse: Marijuana Family History: Reviewed & Not Pertinent, Other Patient has suicidal ideation: No Patient has homicidal ideation: No Renal/ Medical History: Denies: Hx Peritoneal Dialysis Psychiatric Medical History: Reports: Hx Depression Past Surgical History: Reports: Hx Appendectomy, Hx Section, Hx Orthopedic Surgery - R ankle, spine - Immunizations Hx Diphtheria, Pertussis, Tetanus Vaccination: Yes Hx Pneumococcal Vaccination: 07/26/11 <CINDY RICHTER - Last Filed: 07/11/18 20:19> Review of Systems <EMILY ÁLVAREZ - Last Filed: 07/11/18 15:48> <CINDY RICHTER - Last Filed: 07/11/18 20:19> - Review of Systems Notes: REVIEW OF SYSTEMS: CONSTITUTIONAL : Denies fever, chills, or sweats. Denies recent illness. Denies weight loss, recent hospitalizations. EENT: Denies visual changes, eye pain. Denies sore throat, oral lesions, difficulty swallowing. CARDIOVASCULAR: Denies chest pain. Denies palpitations. Denies lower extremity edema. RESPIRATORY: Denies cough. Denies shortness of breath, wheezing. GASTROINTESTINAL: Denies abdominal pain or distention. Denies diarrhea. Denies blood in vomitus, stools, or per rectum. Denies black, tarry stools. Denies constipation. GENITOURINARY: Denies difficulty urinating, painful urination, frequency, blood in urine, or vaginal discharge. MUSCULOSKELETAL: Denies back or neck pain or stiffness. Denies joint pain or swelling. SKIN: Denies rash, lesions or sores. HEMATOLOGIC : Denies easy bruising or bleeding. LYMPHATIC: Denies swollen glands. NEUROLOGICAL: Denies confusion or altered mental status. Denies loss of consciousness. Denies dizziness or lightheadedness. Denies weakness or paralysis. Denies problems difficulty with ambulation, slurred speech. Denies sensory loss, numbness, or tingling. Denies seizures. PSYCHIATRIC: Denies homicidal ideation. Denies visual or auditory hallucinations. (CINDY RICHTER) Physical Exam <EMILY ÁLVAREZ - Last Filed: 07/11/18 15:48> - Vital signs Interpretation: No: Febrile <CINDY RICHTER - Last Filed: 07/11/18 20:19> - Vital signs Vitals: Temp Pulse Resp BP Pulse Ox 99.1 F 77 12 126/75 H 97 07/11/18 12:51 07/11/18 12:51 07/11/18 12:51 07/11/18 12:51 07/11/18 12:51 - Notes Notes: PHYSICAL EXAMINATION: GENERAL: Actively vomiting HEAD: Atraumatic, normocephalic. EYES: Pupils equal round and reactive to light, extraocular movements intact, conjunctiva are normal. ENT: Nares patent, oropharynx clear without exudates. Moist mucous membranes. NECK: Normal range of motion, supple without lymphadenopathy LUNGS: Breath sounds clear to auscultation bilaterally and equal. No wheezes rales or rhonchi. HEART: Regular rate and rhythm without murmurs ABDOMEN: Soft, nontender, nondistended abdomen. No guarding, no rebound. No masses appreciated. Female : deferred Musculoskeletal: Normal range of motion, no pitting or edema. No cyanosis. NEUROLOGICAL: Cranial nerves grossly intact. Normal speech, normal gait. Normal sensory, motor exams PSYCH: Tearful, admits to suicidal ideation. SKIN: Warm, Dry, normal turgor, no rashes or lesions noted. (CINDY RICHTER) Course - Laboratory Result Diagrams: 07/11/18 15:25 07/11/18 15:25 <EMILY ÁLVAREZ - Last Filed: 07/11/18 15:48> - Laboratory Result Diagrams: 07/11/18 15:25 07/11/18 15:25 <CINDY RICHTER - Last Filed: 07/11/18 20:19> - Re-evaluation Re-evalutation: 07/11/18 20:16 Laboratory 07/11/18 07/11/18 07/11/18 15:25 15:25 15:25 WBC 8.7 RBC 4.90 Hgb 14.6 Hct 42.8 MCV 87 MCH 29.7 MCHC 34.0 RDW 12.7 Plt Count 224 Seg Neutrophils % 76.0 Lymphocytes % 18.3 Monocytes % 4.8 Eosinophils % 0.6 Basophils % 0.3 Absolute Neutrophils 6.6 Absolute Lymphocytes 1.6 Absolute Monocytes 0.4 Absolute Eosinophils 0.1 Absolute Basophils 0.0 Sodium 139.4 Potassium 4.0 Chloride 108 H Carbon Dioxide 23 Anion Gap 8 BUN 10 Creatinine 0.70 Est GFR ( Amer) > 60 Est GFR (Non-Af Amer) > 60 Glucose 91 Calcium 9.6 Total Bilirubin 0.6 Direct Bilirubin 0.2 Neonat Total Bilirubin Not Reportable Neonat Direct Bilirubin Not Reportable Neonat Indirect Bili Not Reportable AST 28 ALT 20 Alkaline Phosphatase 69 Total Protein 7.6 Albumin 4.3 Serum HCG, Qual NEGATIVE Urine Color Urine Appearance Urine pH Ur Specific [place] Urine Protein Urine Glucose (UA) Urine Ketones Urine Blood Urine Nitrite Urine Bilirubin Urine Urobilinogen Ur Leukocyte Esterase Urine WBC (Auto) Urine RBC (Auto) Urine Bacteria (Auto) Squamous Epi Cells Auto Amorphous Sediment Auto Urine Mucus (Auto) Urine Ascorbic Acid Salicylates < 1.0 L Urine Opiates Screen Urine Methadone Screen Acetaminophen < 10 L Ur Barbiturates Screen Ur Phencyclidine Scrn Ur Amphetamines Screen U Benzodiazepines Scrn Urine Cocaine Screen U Marijuana (THC) Screen Serum Alcohol < 10 18 07/11/18 15:25 15:25 WBC RBC Hgb Hct MCV MCH MCHC RDW Plt Count Seg Neutrophils % Lymphocytes % Monocytes % Eosinophils % Basophils % Absolute Neutrophils Absolute Lymphocytes Absolute Monocytes Absolute Eosinophils Absolute Basophils Sodium Potassium Chloride Carbon Dioxide Anion Gap BUN Creatinine Est GFR ( Amer) Est GFR (Non-Af Amer) Glucose Calcium Total Bilirubin Direct Bilirubin Neonat Total Bilirubin Neonat Direct Bilirubin Neonat Indirect Bili AST ALT Alkaline Phosphatase Total Protein Albumin Serum HCG, Qual Urine Color YELLOW Urine Appearance CLOUDY Urine pH 5.0 Ur Specific [place] 1.026 Urine Protein 30 H Urine Glucose (UA) NEGATIVE Urine Ketones 20 H Urine Blood NEGATIVE Urine Nitrite NEGATIVE Urine Bilirubin NEGATIVE Urine Urobilinogen NEGATIVE Ur Leukocyte Esterase LARGE H Urine WBC (Auto) 2 Urine RBC (Auto) 3 Urine Bacteria (Auto) TRACE Squamous Epi Cells Auto 37 Amorphous Sediment Auto TRACE Urine Mucus (Auto) FEW Urine Ascorbic Acid NEGATIVE Salicylates Urine Opiates Screen NEGATIVE Urine Methadone Screen NEGATIVE Acetaminophen Ur Barbiturates Screen NEGATIVE Ur Phencyclidine Scrn NEGATIVE Ur Amphetamines Screen NEGATIVE U Benzodiazepines Scrn UNCONFIRMED POSITIVE Urine Cocaine Screen NEGATIVE U Marijuana (THC) Screen UNCONFIRMED POSITIVE Serum Alcohol Temp Pulse Resp BP Pulse Ox 99 F 70 16 118/74 100 18 17:23 1218 17:23 18 17:23 18 17:23 18 17:23 27-year-old female presents with complaint of worsening depression, intermittent thoughts of suicide although without a plan. Patient does have a history of depression but has never been on medication for this. She denies previous suicide attempt. Patient evaluated by psychology team. Medication recommendations of Zyprexa and Cogentin were given. And was given IV fluids, Zofran, Toradol. On reevaluation patient is smiling, thankful. Mother is at the bedside and states that they appreciate the help. She is willing to take medication at this time. CBC, CMP within normal limits. HCG negative. Urinalysis does show leuk esterase but only 2 WBCs. Patient denies any dysuria , urgency or frequency. Urine culture pending. Patient did receive Zyprexa prior to discharge. Patient and mother are comfortable with discharge home. Patient was evaluated and treated as appropriate for the patient's presenting symptoms and complaint, with consideration of any critical or life threatening conditions that may be associated with their obtained history and exam as noted above. All results were discussed with patient and her mother. Patient provided the opportunity to ask questions, and express concerns. Patient was educated on treatments based on their presumed diagnosis as noted above. At this time we will discharge the patient with return precautions and follow-up recommendations. Verbal discharge instructions given a the bedside. Medication warnings reviewed. Patient is in agreement with this plan and has verbalized understanding of return precautions. After careful consideration I feel that that patient can be safely discharged from the emergency department, they were advised to followup with a primary care physician in 2-3 days. Dictation on this chart was performed using voice recognition software and may result in unintended grammatical, spelling, syntax or errors. (CINDY RICHTER) - Vital Signs Vital signs: Temp Pulse Resp BP Pulse Ox 99 F 70 16 118/74 100 07/11/18 17:23 18 17:23 07/11/18 17:23 18 17:23 07/11/18 17:23 - Laboratory Laboratory results interpreted by me: 07/11/18 07/11/18 15:25 15:25 Chloride 108 H Urine Protein 30 H Urine Ketones 20 H Ur Leukocyte Esterase LARGE H Salicylates < 1.0 L Acetaminophen < 10 L Discharge <EMILY ÁLVAREZ - Last Filed: 07/11/18 15:48> <CINDY RICHTER - Last Filed: 07/11/18 20:19> - Discharge Clinical Impression: Suicidal ideation, Marijuana use Depression Qualifiers: Depression Type: unspecified Qualified Code(s): F32.9 - Major depressive disorder, single episode, unspecified Nausea & vomiting Qualifiers: Vomiting type: unspecified Vomiting Intractability: non-intractable Qualified Code(s): R11.2 - Nausea with vomiting, unspecified Condition: Stable Disposition: HOME, SELF-CARE Instructions: Antinausea Medication ([facility]), Vomiting ([facility]), Depression ([facility]), Suicidal Ideation ([facility]), Intravenous (IV) Fluids ([facility]) Additional Instructions: DEPRESSION: Your evaluation reveals that you have mental depression. While symptoms may be vague, they often include disturbance of sleep, fatigue, loss of appetite , and general loss of interest in life. While depression may be a side effect of drugs, or a reaction to a major change in your life, many cases have no known cause. If depression is acute, and related to a major loss in your life, you can expect it to clear completely with time. If you have been depressed a long time , are prone to repeated bouts of depression or low mood, or have been thinking of suicide, get help. Depression can be treated with anti-depressant medication and counselling. Long-term depression will often take a few weeks to clear, even with appropriate medication. Follow-up care is important. SUICIDAL IDEATION: Suicidal ideation is a common medical term for thoughts about suicide, which may be as detailed as a formulated plan, without the suicidal act itself. Although most people who undergo suicidal ideation do not commit suicide, some go on to make suicide attempts. The range of suicidal ideation varies greatly from fleeting to detailed planning, role playing, and unsuccessful attempts. While thoughts about suicide are common, most people do not carry out serious actions to commit suicide. Based upon your evaluation and discussion with you, we do not believe you are currently at risk to act upon your thoughts of suicide. You have agreed to return to the Emergency Department, at any time , if you feel inclined to act upon your suicidal thoughts. FOLLOW-UP CARE: You have been scheduled with [facility] on 07/22/2018 at 0900 for intake in order to obtain outpatient mental health services. You should get there by 0800 for paperwork. you need to have ID and 5 dollars for that visit. You will then be scheduled for group therapy, individual therapy and medication management. You have been provided the outpatient mental health resource sheet which documented appointment date and time as well as highlighted [facility] for crisis/talk therapy/linkage to other services. If you experience worsening or a significant change in your symptoms, notify the physician immediately, utilize mobile crisis or return to the Emergency Department at any time for re-evaluation. Prescriptions: Olanzapine [Zyprexa 5 mg Tablet] 5 mg PO QHS #14 tablet Benztropine Mesylate [Cogentin 1 mg Tablet] 1 tab PO DAILY #14 tab Olanzapine [Zyprexa 2.5 Mg Tablet] 2.5 mg PO QAM #14 tablet Ondansetron [Zofran Odt 4 mg Tablet] 1 tab PO Q4H PRN #15 tab.rapdis PRN Reason: For Nausea/Vomiting Forms: Return to Work Referrals: [facility] [Outside] - 07/22/18 8:00 am [facility] [Outside] - Follow up as needed
[2018-07-11] MEDS ORDERED: CAPSAICIN 0.025% CREAM 60 GM TP ONE (14:50)
[2018-07-11] MEDS ORDERED: NORMAL SALINE 1000 ML 1,000 ML IV ONE (15:34)
[2018-07-11 15:48] LABS: AMORPHOUS SEDIMENT,URINE TRACE /HPF; APPEARANCE,URINE CLOUDY; BILIRUBIN,URINE NEGATIVE (NEGATIVE); COLOR,URINE YELLOW; GLUCOSE, URINE NEGATIVE (NEGATIVE); KETONES,URINE 20 mg/dL (NEGATIVE); LEUKOCYTE ESTERASE,URINE LARGE (NEGATIVE); NITRITE,URINE NEGATIVE (NEGATIVE); PROTEIN,URINE 30 mg/dL (NEGATIVE); URINE SPECIFIC GRAVITY 1.026; UROBILINOGEN,URINE NEGATIVE mg/dL (<2.0)
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
[2018-07-11 15:56] LABS: ABSOLUTE EOSINOPHILS # (AUTO) 0.1 10^3/uL (0.0-0.6); ABSOLUTE LYMPHOCYTES (AUTO) 1.6 10^3/uL (0.5-4.7); ABSOLUTE MONOCYTES (AUTO) 0.4 10^3/uL (0.1-1.4); ABSOLUTE NEUT (AUTO) 6.6 10^3/uL (1.7-8.2); BASOPHILS % (AUTO) 0.3 % (0-2); EOSINOPHILS % (AUTO) 0.6 % (0-6); HEMATOCRIT 42.8 % (36.0-47.0); HEMOGLOBIN 14.6 g/dL (12.0-15.5); LYMPHOCYTES % (AUTO) 18.3 % (13-45); MEAN CORPUSCULAR HEMOGLOBIN 29.7 pg (27.0-33.4); MEAN CORPUSCULAR VOLUME 87 fl (80-97); MONOCYTES % (AUTO) 4.8 % (3-13); PLATELET COUNT 224 10^3/uL (150-450); RED CELL DISTRIBUTION WIDTH 12.7 % (11.5-14.0); TOTAL CELLS COUNTED % (AUTO) 100 %; WHITE BLOOD COUNT 8.7 10^3/uL (4.0-10.5)
[2018-07-11 16:01] LABS: URINE AMPHETAMINES SCREEN NEGATIVE; URINE BARBITURATES SCREEN NEGATIVE; URINE BENZODIAZEPINES SCREEN UNCONFIRMED POSITIVE; URINE COCAINE SCREEN NEGATIVE; URINE MARIJUANA (THC) SCREEN UNCONFIRMED POSITIVE; URINE METHADONE SCREEN NEGATIVE; URINE PHENCYCLIDINE SCREEN NEGATIVE
[2018-07-11] MEDS ORDERED: OLANZAPINE 2.5 MG TABLET PO ONE (16:20)
[2018-07-11] MEDS ORDERED: KETOROLAC TROMETHAMINE INJ/PF 30 MG/1 ML SDV IV ONE (16:27)
[2018-07-11 16:28] LABS: ALANINE AMINOTRANSFERASE 20 U/L (9-52); ALBUMIN 4.3 g/dL (3.5-5.0); ALKALINE PHOSPHATASE 69 U/L (38-126); ANION GAP 8 (5-19); ASPARTATE AMINO TRANSFERASE 28 U/L (14-36); BILIRUBIN,DIRECT 0.2 mg/dL (0.0-0.4); BILIRUBIN,TOTAL 0.6 mg/dL (0.2-1.3); BLOOD UREA NITROGEN 10 mg/dL (7-20); CALCIUM 9.6 mg/dL (8.4-10.2); CARBON DIOXIDE 23 mmol/L (22-30); CHLORIDE 108 mmol/L (98-107); GLUCOSE 91 mg/dL (75-110); SODIUM 139.4 mmol/L (137-145); TOTAL PROTEIN 7.6 g/dL (6.3-8.2)
[2018-07-11 16:29] LABS: ACETAMINOPHEN < 10 ug/mL (10-30); ALCOHOL < 10 mg/dL (NONE DETECTED); SALICYLATE < 1.0 mg/dL (2.0-20.0)
[2018-07-11 17:24] VITALS: BP 118/74
--- NOTE | 2018-07-11 18:56 | EKG REPORT ---
SEVERITY:- BORDERLINE ECG - SINUS RHYTHM PROBABLE LEFT ATRIAL ABNORMALITY : Confirmed by: John Chan MD 11-Jul-2018 18:55:36
== END 2018-07-11 17:24 | disposition home or self-care (01) ==
LOC: ER 12:27
DX: R45.851 Suicidal ideations (principal); F32.9 Major depressive disorder, single episode, unspecified; R11.2 Nausea with vomiting, unspecified; F12.10 Cannabis abuse, uncomplicated; R51 Headache; Z88.5 Allergy status to narcotic agent; Z63.5 Disruption of family by separation and divorce; Z87.891 Personal history of nicotine dependence; Z90.49 Acquired absence of other specified parts of digestive tract
CPT/HCPCS: 93005; 99285; 96361; 96374; 36415; 87086; 80307 ×4; 84703; 85025; 80053; 81001; 93010; S0119; J3490; J2405; J7030

== ENCOUNTER 2018-07-27 13:58 | Emergency (ER) | payer SELFPAY ==
[2018-07-27 14:09] VITALS: BP 119/76
--- NOTE | 2018-07-27 14:55 | ER Document Report ---
HPI - HPI Patient complains to provider of: med refill Time Seen by Provider: 07/27/18 14:41 Onset: Just prior to arrival Onset/Duration: Sudden Quality of pain: No pain Pain Level: Denies Context: 27-year-old female presented to ED for complaint of being out of her Zyprexa. She states she had a scheduled appointment on July 22 but she had a family emergency out of town and had to leave and was not able to keep her appointment. She states she is now out of her Zyprexa. She states she has another appointment on August 11 and will get her meds refilled at that time. Patient denies any other problems she just needs a refill. Associated Symptoms: None Exacerbated by: Denies Relieved by: Denies Similar symptoms previously: Yes Recently seen / treated by doctor: Yes - ROS ROS below otherwise negative: Yes - CONSTITUTIONAL Constitutional: DENIES: Fever, Chills - EENT EENT: DENIES: Sore Throat, Ear Pain, Nasal Drainage-Clear, Nasal Drainage- Purulent, Congestion, Eye problems - NEURO Neurology: DENIES: Headache, Weakness, Vision blurred, Dizzinesss / Vertigo - RESPIRATORY Respiratory: DENIES: Trouble Breathing, Coughing - GASTROINTESTINAL Gastrointestinal: DENIES: Abdominal Pain, Nausea, Patient vomiting, Diarrhea, Constipation, Black / Bloody Stools - URINARY Urinary: DENIES: Dysuria, Urgency, Frequency - REPRODUCTIVE LMP: 07/21/18 Reproductive: DENIES: :, Postmenopausal, Abnormal bleeding / discharge - MUSCULOSKELETAL Musculoskeletal: DENIES: Extremity pain, Back Pain, Neck Pain, Swelling - DERM Skin Color: Normal Skin Problems: None Past Medical History - General Information source: Patient - Social History Smoking Status: Former Smoker Frequency of alcohol use: None Drug Abuse: None Occupation: [employer] Lives with: Parents Family History: Reviewed & Not Pertinent, Other Patient has suicidal ideation: No Patient has homicidal ideation: No - Past Medical History Cardiac Medical History: Reports: None Pulmonary Medical History: Reports: None EENT Medical History: Reports: None Neurological Medical History: Reports: None Endocrine Medical History: Reports: None Renal/ Medical History: Reports: None Malignancy Medical History: Reports: None GI Medical History: Reports: None Musculoskeletal Medical History: Reports None Skin Medical History: Reports None Psychiatric Medical History: Reports: Hx Depression Traumatic Medical History: Reports: None Infectious Medical History: Reports: None Past Surgical History: Reports: Hx Appendectomy, Hx Section, Hx Orthopedic Surgery - R ankle, spine - Immunizations Hx Diphtheria, Pertussis, Tetanus Vaccination: Yes Hx Pneumococcal Vaccination: 07/26/11 Vertical Provider Document - CONSTITUTIONAL Agree With Documented VS: Yes Exam Limitations: No Limitations General Appearance: WD/WN - INFECTION CONTROL TRAVEL OUTSIDE OF THE [place]. IN LAST 30 DAYS: No - HEENT HEENT: Atraumatic, Normal ENT Exam, Normocephalic, PERRLA - NECK Neck: Normal Inspection, Supple - RESPIRATORY Respiratory: Breath Sounds Normal, No Respiratory Distress - CARDIOVASCULAR Cardiovascular: Regular Rate, Regular Rhythm - GI/ABDOMEN Gastrointestinal: Abdomen Soft, Abdomen Tender, No Organomegaly, Normal Bowel Sounds - BACK Back: Normal Inspection - MUSCULOSKELETAL/EXTREMETIES Musculoskeletal/Extremeties: MAEW, FROM, Non-Tender - NEURO Level of Consciousness: Awake, Alert, Appropriate - DERM Integumentary: Warm, Dry, No Rash Course - Re-evaluation Re-evalutation: 07/27/18 15:01 Patient needed a refill on her Zyprexa. She has a refill on her other medications. She was written a prescription for 2.5 and 5 mg Zyprexa as per previous prescriptions. She was written enough to last her 16 days as she has a follow-up appointment on August 11. Patient was discharged home to follow-up with mental health worker on the . Patient was instructed to do not have another family emergency she needs to keep her appointment. - Vital Signs Vital signs: Temp Pulse Resp BP Pulse Ox 98.6 F 70 16 119/76 100 07/27/18 14:07 07/27/18 14:07 07/27/18 14:07 07/27/18 14:07 07/27/18 14:07 Discharge - Discharge Clinical Impression: Medication refill Condition: Stable Disposition: HOME, SELF-CARE Additional Instructions: You state you need a med refill on your Zyprexa as you had a family emergency and you went out of town when your scheduled appointment was on July 22. You state that your next appointment is on August 11 and you will not have an urgency to keep you from that appointment. These take your Zyprexa as written. Do not use any extra hours and please do not skip any doses. Please follow-up with the primary and your mental health provider. FOLLOW-UP CARE: If you have been referred to a physician for follow-up care, call the physicians office for an appointment as you were instructed or within the next two days. If you experience worsening or a significant change in your symptoms, notify the physician immediately or return to the Emergency Department at any time for re-evaluation. Prescriptions: Olanzapine [Zyprexa 5 mg Tablet] 5 mg PO QHS #16 tablet Olanzapine [Zyprexa 2.5 Mg Tablet] 2.5 mg PO QAM #16 tablet Forms: Return to Work
== END 2018-07-27 14:53 | disposition home or self-care (01) ==
LOC: ER 13:58
DX: Z76.0 Encounter for issue of repeat prescription (principal); Z79.899 Other long term (current) drug therapy; Z87.891 Personal history of nicotine dependence
CPT/HCPCS: 99281

== ENCOUNTER 2018-09-07 09:55 | Emergency (ER) | payer SELFPAY ==
[2018-09-07] MEDS ORDERED: NORMAL SALINE 1000 ML 1,000 ML IV ONE (10:12)
[2018-09-07] MEDS ORDERED: ONDANSETRON HCL INJ/PF 4 MG/2 ML SDV IV ONE (10:12)
[2018-09-07] MEDS ORDERED: KETOROLAC TROMETHAMINE INJ/PF 30 MG/1 ML SDV IV ONE (10:12)
--- NOTE | 2018-09-07 10:14 | ER Document Report ---
ED Medical Screen (RME) - General Chief Complaint: Abdominal Pain Stated Complaint: ABDOMINAL PAIN/NAUSEA/VOMITING Time Seen by Provider: 09/07/18 10:08 Primary Care Provider: INEZ PELLETIER MD [Primary Care Provider] - Follow up as needed Notes: 27 years old female presents today with right upper quadrant pain nausea and vomiting for the last 4-5 days. No diarrhea but loose stools on and off. Sometimes the pain radiates substernally and moves to the right shoulder. Sharp tenderness over the right upper quadrant noted. TRAVEL OUTSIDE OF THE U.S[place] IN LAST 30 DAYS: No - Related Data Allergies/Adverse Reactions: morphine [Morphine] Adverse Reaction (Mild, Verified 09/07/18 09:56) Dystonia Past Medical History Renal/ Medical History: Denies: Hx Peritoneal Dialysis Psychiatric Medical History: Reports: Hx Depression Past Surgical History: Reports: Hx Appendectomy, Hx Section, Hx Orthopedic Surgery - R ankle, spine - Immunizations Hx Diphtheria, Pertussis, Tetanus Vaccination: Yes Physical Exam - Vital signs Vitals: Temp Pulse Resp BP Pulse Ox 98.0 F 72 16 127/79 H 99 09/07/18 09:58 09/07/18 09:58 09/07/18 09:58 09/07/18 09:58 09/07/18 09:58 Course - Vital Signs Vital signs: Temp Pulse Resp BP Pulse Ox 98.0 F 72 16 127/79 H 99 09/07/18 09:58 09/07/18 09:58 09/07/18 09:58 09/07/18 09:58 09/07/18 09:58 Doctor's Discharge - Discharge Referrals: INEZ PELLETIER MD [Primary Care Provider] - Follow up as needed
[2018-09-07 11:23] LABS: ABSOLUTE LYMPHOCYTES (AUTO) 2.2 10^3/uL (0.5-4.7); ABSOLUTE MONOCYTES (AUTO) 0.4 10^3/uL (0.1-1.4); ABSOLUTE NEUT (AUTO) 5.6 10^3/uL (1.7-8.2); BASOPHILS % (AUTO) 0.3 % (0-2); EOSINOPHILS % (AUTO) 0.4 % (0-6); HEMATOCRIT 39.8 % (36.0-47.0); HEMOGLOBIN 13.9 g/dL (12.0-15.5); LYMPHOCYTES % (AUTO) 26.3 % (13-45); MEAN CORPUSCULAR HEMOGLOBIN 30.7 pg (27.0-33.4); MEAN CORPUSCULAR VOLUME 88 fl (80-97); MONOCYTES % (AUTO) 5.4 % (3-13); PLATELET COUNT 220 10^3/uL (150-450); RED BLOOD COUNT 4.53 10^6/uL (3.72-5.28); SEGMENTED NEUTROPHILS % (AUTO) 67.6 % (42-78); TOTAL CELLS COUNTED % (AUTO) 100 %; WHITE BLOOD COUNT 8.3 10^3/uL (4.0-10.5)
[2018-09-07 11:36] LABS: APPEARANCE,URINE SLIGHTLY-CLOUDY; BILIRUBIN,URINE NEGATIVE (NEGATIVE); COLOR,URINE YELLOW; GLUCOSE, URINE NEGATIVE (NEGATIVE); KETONES,URINE NEGATIVE (NEGATIVE); LEUKOCYTE ESTERASE,URINE SMALL (NEGATIVE); NITRITE,URINE NEGATIVE (NEGATIVE); PROTEIN,URINE NEGATIVE (NEGATIVE); URINE SPECIFIC GRAVITY 1.025; UROBILINOGEN,URINE NEGATIVE mg/dL (<2.0)
[2018-09-07 11:42] LABS: ALANINE AMINOTRANSFERASE 29 U/L (9-52); ALBUMIN 4.7 g/dL (3.5-5.0); ALKALINE PHOSPHATASE 71 U/L (38-126); ANION GAP 12 (5-19); ASPARTATE AMINO TRANSFERASE 21 U/L (14-36); BILIRUBIN,DIRECT 0.1 mg/dL (0.0-0.4); BILIRUBIN,TOTAL 0.6 mg/dL (0.2-1.3); BLOOD UREA NITROGEN 10 mg/dL (7-20); CALCIUM 9.7 mg/dL (8.4-10.2); CARBON DIOXIDE 24 mmol/L (22-30); CHLORIDE 106 mmol/L (98-107); GLUCOSE 89 mg/dL (75-110); LIPASE 72.2 U/L (23-300); POTASSIUM 4.2 mmol/L (3.6-5.0); SODIUM 141.8 mmol/L (137-145); TOTAL PROTEIN 7.8 g/dL (6.3-8.2)
--- NOTE | 2018-09-07 12:11 | RADIOLOGY REPORT (SQ) ---
EXAM DESCRIPTION: U/S ABDOMEN LIMITED W/O DOP COMPLETED DATE/TIME: 09/07/2018 11:52 am REASON FOR STUDY: Cholecystitis COMPARISON: 03/22/2018 TECHNIQUE: Dynamic and static grayscale images acquired of the abdomen and recorded on PACS. Additio isadora selected color Doppler and spectral images recorded. LIMITATIONS: None. FINDINGS: PANCREAS: No masses. Visualized pancreatic duct normal caliber. LIVER: No masses. Echotexture normal. LIVER VASCULATURE: Normal directional flow of the main portal vein and hepatic veins. GALLBLADDER: Questionable gallbladder polyp previously identified is no longer noted. No stones. No wall thickening. ULTRASOUND-DETECTED SHERWOOD'S SIGN: Negative. INTRAHEPATIC DUCTS AND COMMON DUCT: CBD and intrahepatic ducts normal caliber. No filling defects. INFERIOR VENA CAVA: Normal flow. AORTA: No aneurysm. RIGHT KIDNEY: Normal size. Normal echogenicity. No solid or suspicious masses. No hydronephrosis. No calcifications. PERITONEAL AND RIGHT PLEURAL SPACE: No ascites or effusions. OTHER: No other significant findings. IMPRESSION: NORMAL RIGHT UPPER QUADRANT ULTRASOUND. TECHNICAL DOCUMENTATION: JOB ID: [id number] [employer]- All Rights Reserved Reading location - IP/workstation name: [email or web address]
[2018-09-07] MEDS ORDERED: LIDOCAINE 2% VISCOUS SOLN 20 ML UDCUP PO ONE (12:22)
[2018-09-07] MEDS ORDERED: MAG HYDROX/AL HYDROX/SIMETH SUSP 30 ML UDCUP PO ONE (12:22)
[2018-09-07] MEDS ORDERED: METOCLOPRAMIDE HCL ORAL SOLN 10 MG/10 ML UDCUP PO ONE (12:22)
--- NOTE | 2018-09-07 12:32 | ER Document Report ---
ED General - General Chief Complaint: Abdominal Pain Stated Complaint: ABDOMINAL PAIN/NAUSEA/VOMITING Time Seen by Provider: 09/07/18 10:08 Primary Care Provider: KIM PATEL MD [ACTIVE STAFF] - Follow up as needed INEZ PELLETIER MD [Primary Care Provider] - Follow up as needed TRAVEL OUTSIDE OF THE U.[place] IN LAST 30 DAYS: No - HPI Notes: Patient is a 27-year-old female with no significant past medical history aside from an appendectomy who presents to the emergency department complaining of epigastric abdominal pain, nausea/vomiting, and occasional loose stool over the last 4 days. Patient states that food intake does make her pain worse. She is still able to drink fluids, but does have a decreased solid food intake. She is urinating normally. She has not had any vaginal discharge, odor, or bleeding. The pain will occasionally radiate from her epigastric towards her right shoulder blade. No other concerns or complaints. Denies any headache, fever, URI, sore throat, chest pain, palpitations, syncope, cough, shortness of breath, wheeze, dyspnea, urinary retention, dysuria, hematuria, or rash. - Related Data Allergies/Adverse Reactions: morphine [Morphine] Adverse Reaction (Mild, Verified 09/07/18 09:56) Dystonia Past Medical History - Social History Smoking Status: Never Smoker Family History: Reviewed & Not Pertinent, Other Patient has suicidal ideation: No Patient has homicidal ideation: No Renal/ Medical History: Denies: Hx Peritoneal Dialysis Psychiatric Medical History: Reports: Hx Depression Past Surgical History: Reports: Hx Appendectomy, Hx Section, Hx Orthopedic Surgery - R ankle, spine - Immunizations Hx Diphtheria, Pertussis, Tetanus Vaccination: Yes Hx Pneumococcal Vaccination: 07/26/11 Review of Systems - Review of Systems -: Yes All other systems reviewed and negative Physical Exam - Vital signs Vitals: Temp Pulse Resp BP Pulse Ox 98.0 F 72 16 127/79 H 99 09/07/18 09:58 09/07/18 09:58 09/07/18 09:58 09/07/18 09:58 09/07/18 09:58 - Notes Notes: PHYSICAL EXAMINATION: GENERAL: Well-appearing, well-nourished and in no acute distress. HEAD: Atraumatic, normocephalic. EYES: Pupils equal round and reactive to light, extraocular movements intact, sclera anicteric, conjunctiva are normal. ENT: Nares patent and without discharge. oropharynx clear without exudates. No tonsilar hypertrophy or erythema. Moist mucous membranes. NECK: Normal range of motion, supple without lymphadenopathy LUNGS: Breath sounds clear to auscultation bilaterally and equal. No wheezes rales or rhonchi. HEART: Regular rate and rhythm without murmurs, rubs, gallops. ABDOMEN: Soft, nondistended abdomen. No guarding, no rebound. Normal bowel sounds present. No CVA tenderness bilaterally. + tenderness to the epigastrum and RUQ. Musculoskeletal: FROM to passive/active. Strength 5+/5. Extremities: No cyanosis, clubbing, or edema b/l. Peripheral pulses 2+. Capillary refill less than 3 seconds. NEUROLOGICAL: Normal speech, normal gait. PSYCH: Normal mood, normal affect. SKIN: Warm, Dry, normal turgor, no rashes or lesions noted. Course - Re-evaluation Re-evalutation: 09/07/18 12:35 Patient is an afebrile, well-hydrated, 27-year-old female who presents the emergency department epigastric/right upper quadrant pain, unspecified, with nausea/vomiting/diarrhea. I do suspect her illness to be most likely viral with inflammation of the stomach versus biliary colic. Vitals are acceptable without significant tachycardia, tachypnea, or hypoxia. PE is otherwise unremarkable. CBC, CMP, lipase, urinalysis, hCG, abdominal ultrasound were unremarkable for any acute pathology. GI cocktail was provided some improve ment. She is otherwise nontoxic-appearing and is able to tolerate p.o. without difficulty. She has not had any episodes of emesis throughout her stay. Low suspicion/risk for acute appendicitis, bowel obstruction, acute cholecystitis, acute cholangitis, perforated diverticulitis, incarcerated hernia, pancreatitis, perforated ulcer, peritonitis, sepsis, pelvic inflammatory disease, ectopic , tubo-ovarian abscess, ovarian torsion, or other systemic emergent condition at this time. Patient is aware that her condition can change from initial presentation and she needs to monitor symptoms closely and seek medical attention if any acute changes. I will send her home with a prescription for omeprazole, Carafate, and Zofran. Conservative measures otherwise for symptoms. Recheck with your PCM in 2-3 days. Return to the ED with any worsening/concerning symptoms otherwise as reviewed in discharge. Patient is in agreement. 09/07/18 13:38 Upon discharge, mother had a lot of questions as to why she continues to have pain. It got to the point where I called and spoke with our surgeon Dr. sears who is in agreement that she needs to have a consult with GI and possibly as gen surg outpatient for further evaluation, but does not believe that she needs any surgery right now. He recommends PPI treatment as I have already planned on as well. Reviewed risk/benefit of CT scan and pt in agreement to hold off at this time. Mother and daughter very thankful after thorough education and discussion. - Vital Signs Vital signs: Temp Pulse Resp BP Pulse Ox 98.0 F 72 16 127/79 H 99 09/07/18 09:58 09/07/18 09:58 09/07/18 09:58 09/07/18 09:58 09/07/18 09:58 - Laboratory Result Diagrams: 09/07/18 10:50 09/07/18 10:50 Laboratory results interpreted by me: 09/07/18 10:15 Ur Leukocyte Esterase SMALL H Discharge - Discharge Clinical Impression: Upper abdominal pain, Nausea vomiting and diarrhea Condition: Stable Disposition: HOME, SELF-CARE Instructions: Antinausea Medication ([facility]), Evaluation of Upper Abdominal Pain ([facility]) Additional Instructions: Maintain adequate fluid and food intake Ralph diet (B.R.A.T.) Bananas, rice, apples, toast, etc Zofran as needed tylenol if needed Monitor for any worsening symptoms Make sure you are staying hydrated enough to urinate and have normal BM's Recheck with your PCM in 2-3 days Consider consult with Gastroenterology for ongoing/worsening symptoms Return to the ED with any worsening symptoms and/or development of fever, headache, chest pain, palpitations, syncope, shortness of breath, trouble breathing, abdominal pain, n/v/d, blood in stool/urine, weakness, or other worsening symptoms that are concerning to you. Prescriptions: Omeprazole 20 mg PO DAILY #30 tablet. Ondansetron [Zofran Odt 4 mg Tablet] 1 - 2 tab PO Q4H PRN #15 tab.rapdis PRN Reason: For Nausea/Vomiting Sucralfate [Carafate] 1 gm PO BID #100 ml Forms: Elevated Blood Pressure Referrals: INEZ PELLETIER MD [Primary Care Provider] - Follow up as needed KIM PATEL MD [ACTIVE STAFF] - Follow up as needed
[2018-09-07 13:44] VITALS: BP 131/70
== END 2018-09-07 13:47 | disposition home or self-care (01) ==
LOC: ER 09:55
DX: R10.10 Upper abdominal pain, unspecified (principal); R11.2 Nausea with vomiting, unspecified; R19.7 Diarrhea, unspecified; R10.9 Unspecified abdominal pain; R10.13 Epigastric pain; R63.0 Anorexia
CPT/HCPCS: 99284; 96361; 96374; 96375; 36415; 83690; 85025; 81025; 80053; 81001; 76705; J3490; J1885; J2405; J7030

== ENCOUNTER → 2018-12-15 | Outpatient (CLI) | payer SELFPAY ==
--- NOTE | 2018-12-15 15:06 | RADIOLOGY REPORT (SQ) ---
EXAM DESCRIPTION: U/S [id number] TRNABD 1GES W/ODOP COMPLETED DATE/TIME: 12/15/2018 2:05 pm REASON FOR STUDY: Z34.81 ENCOUNTER FOR SUPRVSN OF NORMAL , FIRST TRIMESTER Z34.81 ENCOUNTE R FOR SUPRVSN OF NORMAL , FIRST TRIM COMPARISON: None. TECHNIQUE: Transabdominal static and realtime grayscale images acquired of the pelvis. Additional se lected spectral and color Doppler images recorded. All images stored on PACs. bHCG: Not available. CLINICAL DATES: 9 weeks 1 day LIMITATIONS: None. FINDINGS: FETUS: Single Living intrauterine . ULTRASOUND EGA: 9 weeks 2 days ULTRASOUND CLARITA: 07/18/2019 EFW: Not applicable less than 20 weeks. CRL: 2.5 cm FHR: 178 beats per minute. SURVEY: No visualized anomalies. AMNIOTIC FLUID: Adequate amount. PLACENTA: Not yet developed due to early gestation. SUBCHORIONIC BLEED: No. SIZE OF BLEED: Not applicable. UTERUS: No masses. No anomalies. CERVICAL LENGTH: 3.0 cm. Closed. RIGHT ADNEXA: Ovary not identified due to poor acoustical window. No adnexal free fluid. No adnexal masses. LEFT ADNEXA: Normal ovary with normal vascular flow. No adnexal free fluid. No adnexal masses. FREE FLUID: None. OTHER: No other significant finding. IMPRESSION: LIVING INTRAUTERINE . EGA 9 weeks 2 days Trimester of : First - 0 to 13 weeks. TECHNICAL DOCUMENTATION: JOB ID: [id number] [employer]- All Rights Reserved Reading location - IP/workstation name: [email or web address]
== END ==
LOC: RAD 13:38
PROVIDERS: ATTEND Midwife
DX: Z34.81 Encounter for supervision of other normal pregnancy, first trimester (principal)
CPT/HCPCS: 76801

== ENCOUNTER 2018-12-29 10:40 | Emergency (ER) | payer MEDICAID ==
[2018-12-29 10:44] VITALS: BP 122/71
--- NOTE | 2018-12-29 10:54 | ER Document Report ---
HPI - HPI Pain Level: 1 Notes: Patient is a 28-year-old female with no significant past medical history who presents complaining of a rash to her legs b/l that started 4 days ago. It originally started on the left lower leg then started spreading day by day proximally and now encompasses her waistband area and some areas to the rt leg. Patient states that the rash is intensely pruritic and worse at nighttime. She is no obvious new exposures to chemicals, foods, detergents, soaps, plants. She is unaware of any new clothing or furniture. No recent travel. She is otherwise eating and drinking without difficulty. She is urinating normally. She does not take medicines daily. Denies any headache, fever, neck pain, URI, sore throat, chest pain, palpitations, syncope, cough, shortness of breath, wheeze, dyspnea, abdominal pain, nausea/vomiting/diarrhea, urinary retention, dysuria, hematuria. - ROS Systems Reviewed and Negative: Yes All other systems reviewed and negative - CONSTITUTIONAL Constitutional: DENIES: Fever, Chills - REPRODUCTIVE Reproductive: DENIES: : Past Medical History - Social History Smoking Status: Never Smoker Frequency of alcohol use: None Drug Abuse: None Family History: Reviewed & Not Pertinent, Other Patient has suicidal ideation: No Patient has homicidal ideation: No Renal/ Medical History: Denies: Hx Peritoneal Dialysis Psychiatric Medical History: Reports: Hx Depression Past Surgical History: Reports: Hx Appendectomy, Hx Section, Hx Orthopedic Surgery - R ankle, spine - Immunizations Hx Diphtheria, Pertussis, Tetanus Vaccination: Yes Hx Pneumococcal Vaccination: 07/26/11 Vertical Provider Document - CONSTITUTIONAL Agree With Documented VS: Yes Notes: PHYSICAL EXAMINATION: GENERAL: Well-appearing, well-nourished and in no acute distress. HEAD: Atraumatic, normocephalic. EYES: Pupils equal round and reactive to light, extraocular movements intact, sclera anicteric, conjunctiva are normal. ENT: EAC clear b/l. TM's intact b/l without erythema, fluid, or perforation. Nares patent and without discharge. oropharynx clear without exudates. No tonsilar hypertrophy or erythema. Moist mucous membranes. No sinus tenderness. NECK: Normal range of motion, supple without lymphadenopathy LUNGS: Breath sounds clear to auscultation bilaterally and equal. No wheezes rales or rhonchi. HEART: Regular rate and rhythm without murmurs, rubs, gallops. ABDOMEN: Soft, nontender, nondistended abdomen. No guarding, no rebound. Normal bowel sounds present. Musculoskeletal: FROM to passive/active. Strength 5+/5. Extremities: No cyanosis, clubbing, or edema b/l. Peripheral pulses 2+. Capillary refill less than 3 seconds. NEUROLOGICAL: Normal speech, normal gait. Normal sensory, motor exams PSYCH: Normal mood, normal affect. SKIN: Small maculopapular minimally erythemic areas noted with central scabbing and some burrows to the lower extremity bilaterally and to the waistband area. No evidence of fluctuance, induration, purulence, or streaks. Nontender to palpation. - INFECTION CONTROL TRAVEL OUTSIDE OF THE [place] IN LAST 30 DAYS: No Course - Re-evaluation Re-evalutation: 12/29/18 10:59 Patient is an afebrile, well-hydrated, 28-year-old female who presents with a rash I do suspect to be scabies. Vitals are acceptable without significant tachycardia, tachypnea, or hypoxia. PE is otherwise unremarkable. Patient is nontoxic-appearing and is able to tolerate p.o. without difficulty. Low suspicion for any necrotizing fasciitis, SJS, SSS, drug reaction, sepsis, meningitis, syphilis, Lyme disease, Eden spotted fever, or other systemic emergent condition at this time. Patient aware that condition can change from initial presentation and she needs to monitor symptoms closely and seek medical attention with any acute changes. I will send her home with a prescription for permethrin. Scabies precautions reviewed. Recheck with your PCM in 3-5 days. Consider consult with dermatology. Return to the ED with any other worsening/concerning symptoms as reviewed. Patient is in agreement. - Vital Signs Vital signs: Temp Pulse Resp BP Pulse Ox 98.6 F 77 16 122/71 97 12/29/18 10:43 12/29/18 10:43 12/29/18 10:43 12/29/18 10:43 12/29/18 10:43 Discharge - Discharge Clinical Impression: Rash and nonspecific skin eruption, Scabies Condition: Stable Disposition: HOME, SELF-CARE Instructions: Scabies ([facility]) Additional Instructions: Keep the skin clean Wash with soap and water Tylenol/ibuprofen if needed Scabies instructions as reviewed Triple antibiotic ointment daily Take medication as directed Monitor for any worsening symptoms Recheck with your PCM in 3-5 days Return to the ED with any worsening symptoms and/or development of fever, headache, chest pain, palpitations, syncope, shortness of breath, trouble breathing, abdominal pain, n/v/d, abscess, purulent discharge, red streaks, worsening swelling, or other worsening symptoms that are concerning to you. Prescriptions: Permethrin [Elimite] 60 gm TP ONCE PRN #60 cream.gm. PRN Reason: Referrals: TYRONE MIRANDA CNM [Primary Care Provider] - Follow up as needed HEMANT PERALES DO [ACTIVE STAFF] - Follow up as needed
== END 2018-12-29 11:00 | disposition home or self-care (01) ==
LOC: ER 10:40
DX: B86 Scabies (principal); R21 Rash and other nonspecific skin eruption
CPT/HCPCS: 99282

== ENCOUNTER 2019-07-10 06:21 | Outpatient (CLI) | payer MEDICAID ==
[2019-07-10 06:52] LABS: APPEARANCE,URINE CLEAR; BILIRUBIN,URINE NEGATIVE (NEGATIVE); COLOR,URINE YELLOW; GLUCOSE, URINE NEGATIVE (NEGATIVE); KETONES,URINE NEGATIVE (NEGATIVE); LEUKOCYTE ESTERASE,URINE NEGATIVE (NEGATIVE); NITRITE,URINE NEGATIVE (NEGATIVE); PROTEIN,URINE NEGATIVE (NEGATIVE); URINE SPECIFIC GRAVITY 1.019; UROBILINOGEN,URINE NEGATIVE mg/dL (<2.0)
[2019-07-10 07:11] LABS: URINE AMPHETAMINES SCREEN NEGATIVE; URINE BARBITURATES SCREEN NEGATIVE; URINE BENZODIAZEPINES SCREEN NEGATIVE; URINE COCAINE SCREEN NEGATIVE; URINE METHADONE SCREEN NEGATIVE; URINE PHENCYCLIDINE SCREEN NEGATIVE
[2019-07-10 07:19] LABS: URINE MARIJUANA (THC) SCREEN UNCONFIRMED POSITIVE
[2019-07-10 08:21] LABS: ABSOLUTE EOSINOPHILS # (AUTO) 0.1 10^3/uL (0.0-0.6); ABSOLUTE LYMPHOCYTES (AUTO) 1.6 10^3/uL (0.5-4.7); ABSOLUTE MONOCYTES (AUTO) 0.5 10^3/uL (0.1-1.4); ABSOLUTE NEUT (AUTO) 6.4 10^3/uL (1.7-8.2); BASOPHILS % (AUTO) 0.4 % (0-2); HEMOGLOBIN 12.4 g/dL (12.0-15.5); LYMPHOCYTES % (AUTO) 18.8 % (13-45); MEAN CORPUSCULAR HEMOGLOBIN 29.2 pg (27.0-33.4); MEAN CORPUSCULAR HGB CONC 33.4 g/dL (32.0-36.0); MEAN CORPUSCULAR VOLUME 88 fl (80-97); MONOCYTES % (AUTO) 5.4 % (3-13); PLATELET COUNT 196 10^3/uL (150-450); RED BLOOD COUNT 4.23 10^6/uL (3.72-5.28); RED CELL DISTRIBUTION WIDTH 14.9 % (11.5-14.0); SEGMENTED NEUTROPHILS % (AUTO) 74.4 % (42-78); TOTAL CELLS COUNTED % (AUTO) 100 %; WHITE BLOOD COUNT 8.5 10^3/uL (4.0-10.5)
[2019-07-10 08:27] LABS: UR PRO/CREAT RATIO RESULT 0.1 mg/mg (0.0-0.2); URINE CREATININE 68.4 mg/dL (16-327)
[2019-07-10 08:46] LABS: ALBUMIN 3.6 g/dL (3.5-5.0); ALKALINE PHOSPHATASE 88 U/L (38-126); ANION GAP 9 (5-19); ASPARTATE AMINO TRANSFERASE 24 U/L (14-36); BILIRUBIN,DIRECT 0.4 mg/dL (0.0-0.4); BILIRUBIN,TOTAL 0.5 mg/dL (0.2-1.3); BLOOD UREA NITROGEN 9 mg/dL (7-20); CARBON DIOXIDE 24 mmol/L (22-30); CHLORIDE 104 mmol/L (98-107); GLUCOSE 96 mg/dL (75-110); POTASSIUM 4.1 mmol/L (3.6-5.0); TOTAL PROTEIN 6.7 g/dL (6.3-8.2); URIC ACID 4.6 mg/dL (2.5-6.2)
[2019-07-10] MEDS ORDERED: HYDROXYZINE PAMOATE 50 MG CAPSULE PO ONE (11:59)
[2019-07-10] MEDS ORDERED: HYDROXYZINE PAMOATE 50 MG CAPSULE ONE (12:04)
== END 2019-07-10 12:10 | disposition home or self-care (01) ==
LOC: LC 06:21
PROVIDERS: ATTEND Obstetrics & Gynecology Gynecology
PROC: 4A1HXCZ Monitoring of Products of Conception, Cardiac Rate, External Approach (ICD-10-PCS; principal; 2019-07-10)
DX: O47.1 False labor at or after 37 completed weeks of gestation (principal); Z3A.39 39 weeks gestation of pregnancy
CPT/HCPCS: 59025; 36415; 83615; 84156; 84550; 82570; 85025; 81005; 80053; 80307; G0480 ×2; J3490; 80349

== ENCOUNTER 2019-07-14 17:55 | Outpatient (CLI) | payer MEDICAID ==
[2019-07-14 19:10] LABS: APPEARANCE,URINE SLIGHTLY-CLOUDY; BILIRUBIN,URINE NEGATIVE (NEGATIVE); COLOR,URINE YELLOW; GLUCOSE, URINE NEGATIVE (NEGATIVE); KETONES,URINE NEGATIVE (NEGATIVE); LEUKOCYTE ESTERASE,URINE MODERATE (NEGATIVE); NITRITE,URINE NEGATIVE (NEGATIVE); PROTEIN,URINE 30 mg/dL (NEGATIVE); URINE SPECIFIC GRAVITY 1.023; UROBILINOGEN,URINE NEGATIVE mg/dL (<2.0)
--- NOTE | 2019-07-14 19:12 | Non Stress Test Report ---
Non Stress Test Datetime Report Generated by CPN: 07/14/2019 19:12 DEMOGRAPHIC EGA NST: 39.4 EGA NST: 39.0 INDICATION Indication for Study (NST) Other: contraction and r/o ROM Indication for Study (NST) Other: [id number]__ VITAL SIGNS Temperature - NST: 98.4 Pulse - NST: 81 RESP - NST: 15 MONITORING Monitor Explained: Monitor Explained; Test Explained; Patient Verbalized Understanding Monitor Explained: Monitor Explained; Test Explained; Patient Verbalized Understanding Time on Monitor: 07/14/2019 18:43 Time on Monitor: 07/10/2019 09:19 Time off Monitor: 07/14/2019 19:03 Time off Monitor: 07/10/2019 09:57 NST Duration: 20 NST Duration: 38 NST INTERVENTIONS NST Interventions: PO Hydration NST Interventions: PO Hydration Physician Notified NST: Dr Luna Physician Notified NST: Jalil Novak CNM BABY A: [id number] BABY A Movement : Present Movement : Present Contraction Frequency : irregular Contraction Frequency : irregular FHR Baseline : 125 FHR Baseline : 120 Accelerations : 15X15 Accelerations : 15X15 Decelerations : None Decelerations : None Variability : Moderate 6-25bpm Variability : Moderate 6-25bpm NST Review: Meets Criteria for Reactive NST NST Review: Meets Criteria for Reactive NST NST Review and Verified By : Lazarus Collazo RN NST Review and Verified By : SINA GARNICA RN (Annotations: Data stored by JACOBO on behalf of user) NST Results: Reactive NST Results: Reactive NST COMMENTS NST Comments: K Novak CNM on unit reviewing FHT strip NST REPORT Report Trigger: Send Report
[2019-07-14 19:28] LABS: URINE AMPHETAMINES SCREEN NEGATIVE; URINE BARBITURATES SCREEN NEGATIVE; URINE BENZODIAZEPINES SCREEN NEGATIVE; URINE COCAINE SCREEN NEGATIVE; URINE METHADONE SCREEN NEGATIVE; URINE PHENCYCLIDINE SCREEN NEGATIVE
[2019-07-14 19:44] LABS: URINE MARIJUANA (THC) SCREEN UNCONFIRMED POSITIVE
== END 2019-07-14 19:16 | disposition home or self-care (01) ==
LOC: LC 17:55
PROVIDERS: ATTEND Student in an Organized Health Care Education/Training Program
PROC: 4A1HXCZ Monitoring of Products of Conception, Cardiac Rate, External Approach (ICD-10-PCS; principal; 2019-07-14)
DX: O47.1 False labor at or after 37 completed weeks of gestation (principal); Z3A.37 37 weeks gestation of pregnancy
CPT/HCPCS: 59025; 81005; 80307; 84112; G0480 ×2; 80349

== ENCOUNTER 2019-07-15 08:54 | Inpatient (IN) | payer MEDICAID ==
--- NOTE | 2019-07-15 09:44 | Non Stress Test Report ---
Non Stress Test Datetime Report Generated by CPN: 07/15/2019 09:43 DEMOGRAPHIC EGA NST: 39.5 INDICATION Indication for Study (NST) Other: uterine ctx MONITORING Monitor Explained: Monitor Explained; Test Explained; Patient Verbalized Understanding Time on Monitor: 07/15/2019 09:09 Time off Monitor: 07/15/2019 09:43 Time off Monitor: 07/15/2019 09:43 NST Duration: 34 NST INTERVENTIONS NST Interventions: None Physician Notified NST: Dr Rogers BABY A: [id number] BABY A Movement : Present Contraction Frequency : 2-5 FHR Baseline : 130 Accelerations : 15X15 Decelerations : None Variability : Moderate 6-25bpm NST Review: Meets Criteria for Reactive NST NST Review and Verified By : Sapphire Maldonado RN NST Results: Reactive NST REPORT Report Trigger: Send Report
[2019-07-15 09:51] LABS: APPEARANCE,URINE SLIGHTLY-CLOUDY; BILIRUBIN,URINE NEGATIVE (NEGATIVE); COLOR,URINE YELLOW; GLUCOSE, URINE NEGATIVE (NEGATIVE); KETONES,URINE NEGATIVE (NEGATIVE); LEUKOCYTE ESTERASE,URINE TRACE (NEGATIVE); NITRITE,URINE NEGATIVE (NEGATIVE); PROTEIN,URINE NEGATIVE (NEGATIVE); URINE SPECIFIC GRAVITY 1.015; UROBILINOGEN,URINE NEGATIVE mg/dL (<2.0)
[2019-07-15 10:30] LABS: URINE AMPHETAMINES SCREEN NEGATIVE; URINE BARBITURATES SCREEN NEGATIVE; URINE BENZODIAZEPINES SCREEN NEGATIVE; URINE COCAINE SCREEN NEGATIVE; URINE METHADONE SCREEN NEGATIVE; URINE PHENCYCLIDINE SCREEN NEGATIVE
[2019-07-15 10:48] LABS: URINE MARIJUANA (THC) SCREEN UNCONFIRMED POSITIVE
[2019-07-15] MEDS ORDERED: RINGERS SOLUTION,LACTATED 1,000 ML IV ONE (11:03)
--- NOTE | 2019-07-15 11:19 | Admission Physical ---
Datetime Report Generated by CPN: 07/15/2019 11:19 CURRENT ADMISSION Chief Complaint: Uterine Contractions Indication for Induction: Not Applicable Admit Impression : Term, Intrauterine Admit Plan: Admit to Unit; Initiate Labor Protocol ALLERGIES Medication Allergies: Yes Medication Allergies: morphine/DE/Dystonia (12/29/2018) Latex: Unknown Food Allergies: none Environmental Allergies: none OBSTETRICAL HISTORY EDC: 07/17/2019 00:00 : 3 Para: 1 Term: 1 : 0 SAB: 1 IAB: 0 Ectopic: 0 Livin Cesareans: 1 VBACs: 0 Multiple Births: 0 Gestational Diabetes: No Rh Sensitization: No Incompetent Cervix: No IGNACIO: No Infertility: No ART Treatment: No Uterine Anomaly: No IUGR: No Hx Previous C/S: Yes Macrosomia: No Hx Loss/Stillborn: No PIH: No Hx : No Placenta Previa/Abruption: No Depression/PP Depression: Yes PTL/PROM: No Post Hemorrhage: No Current Procedures: Ultrasound; NST Obstetrical History Comments: - 2011 Primary C/s Breech - 2016 SAB 6 weeks G3- current - pt desires TOLAC SEE RECORDS Alcohol: No Marijuana : Yes Cocaine: No Other Illicit Drugs: No Cigarettes: Never Smoker. [id number] MEDICAL HISTORY Diabetes: No Blood Transfusion: No Pulmonary Disease (Asthma, TB): No Breast Disease: No Hypertension: No Sterile Proc Tech Surgery: No Heart Disease: No Hosp/Surgery: Yes Autoimmune Disorder: No Anesthetic Complications: No Kidney Disease: No Abnormal Pap Smear: No Neuro/Epilepsy: No Psychiatric Disorders: Yes Other Medical Diseases: No Hepatitis/Liver Disease: No Significant Family History: No Varicosities/Phlebitis: No Trauma/Violence : No Thyroid Dysfunction: No Medical History Comments: Anxiety and depression- zoloft, spinal tumor removal - 2001, right ankle surgery- 2008, appendectomy-2009, c/s 2011, GERD INFECTIOUS HISTORY Gonorrhea: No Genital Herpes: No Chlamydia: No Tuberculosis: No Syphilis: No Hepatitis: No HIV/AIDS Exposure: No Rash or Viral Illness: No HPV: No PHYSICAL EXAM General: Normal HEENT: Normal Neurologic: Normal Thyroid: Normal Heart: Normal Lungs: Normal Breast: Deferred Back: Normal Abdomen: Normal Genitourinary Exam: Normal Extremities: Normal DTRs: Normal Pelvic Type: Adequate FETUS A EGA: 39.5 PLANS FOR LABOR AND DELIVERY Labor and Delivery: None Pain Management: Epidural Feeding Preference: Both Benefit of Breast Feed Discussed: Yes Circumcision: N/A INFORMED CONSENT Signature: with User ID: [email or web address]
[2019-07-15 11:47] LABS: ABSOLUTE BASOPHILS # (AUTO) 0.1 10^3/uL (0.0-0.2); ABSOLUTE LYMPHOCYTES (AUTO) 1.6 10^3/uL (0.5-4.7); ABSOLUTE MONOCYTES (AUTO) 0.5 10^3/uL (0.1-1.4); ABSOLUTE NEUT (AUTO) 8.3 10^3/uL (1.7-8.2); BASOPHILS % (AUTO) 0.5 % (0-2); EOSINOPHILS % (AUTO) 0.4 % (0-6); HEMATOCRIT 37.5 % (36.0-47.0); HEMOGLOBIN 12.9 g/dL (12.0-15.5); LYMPHOCYTES % (AUTO) 15.4 % (13-45); MEAN CORPUSCULAR HEMOGLOBIN 29.6 pg (27.0-33.4); MEAN CORPUSCULAR HGB CONC 34.4 g/dL (32.0-36.0); MEAN CORPUSCULAR VOLUME 86 fl (80-97); MONOCYTES % (AUTO) 4.8 % (3-13); PLATELET COUNT 203 10^3/uL (150-450); RED BLOOD COUNT 4.36 10^6/uL (3.72-5.28); RED CELL DISTRIBUTION WIDTH 15.3 % (11.5-14.0); SEGMENTED NEUTROPHILS % (AUTO) 78.9 % (42-78); TOTAL CELLS COUNTED % (AUTO) 100 %; WHITE BLOOD COUNT 10.5 10^3/uL (4.0-10.5)
[2019-07-15] MEDS ORDERED: LIDOCAINE 1% INJ-PF (10 MG/ML) 30 ML SDV ONE (12:00)
[2019-07-15] MEDS ORDERED: OXYTOCIN 10 UNIT/ML VIAL ONE (12:00)
[2019-07-15] MEDS ORDERED: MISOPROSTOL 0.2 MG TABLET ONE (12:00)
[2019-07-15] MEDS ORDERED: OXYTOCIN/NORMAL SALINE 20 UNIT/1,000 ML RTUINJ ONE (12:01)
[2019-07-15] MEDS ORDERED: PROMETHAZINE HCL 25 MG SUPP.RECT PR PRN (13:28)
[2019-07-15] MEDS ORDERED: PROMETHAZINE HCL 25 MG TABLET PO PRN (13:28)
[2019-07-15] MEDS ORDERED: ZOLPIDEM TARTRATE 5 MG TABLET PO PRN (13:28)
[2019-07-15] MEDS ORDERED: MEASLES,MUMPS&RUBELLA VACC/PF 0.5 ML VIAL SUBCUT PRN (13:28)
[2019-07-15] MEDS ORDERED: DIPH/PERTUSS(ACELL)/TETANUS VAC/PF 0.5 ML SYR (>=10YO) IM PRN (13:28)
[2019-07-15] MEDS ORDERED: GLYCERIN/WITCH HAZEL LEAF 1 EACH MED..WIPE TP PRN (13:28)
[2019-07-15] MEDS ORDERED: PROMETHAZINE HCL INJ 25 MG/1 ML VIAL IV PRN (13:28)
[2019-07-15] MEDS ORDERED: PSEUDOEPHEDRINE HCL 30 MG TABLET PO PRN (13:28)
[2019-07-15] MEDS ORDERED: ACETAMINOPHEN WITH CODEINE #3 TABLET PO PRN (13:28)
[2019-07-15] MEDS ORDERED: BENZOCAINE/MENTHOL AEROSOL SPRAY 56 ML TOP PRN (13:28)
[2019-07-15] MEDS ORDERED: MAGNESIUM HYDROXIDE SUSP 30 ML UDCUP PO PRN (13:28)
[2019-07-15] MEDS ORDERED: OXYTOCIN/NORMAL SALINE 20 UNIT/1,000 ML RTUINJ IV PRN (13:28)
[2019-07-15] MEDS ORDERED: ACETAMINOPHEN 650 MG SUPP.RECT PR PRN (13:28)
[2019-07-15] MEDS ORDERED: DIPHENHYDRAMINE HCL 25 MG CAPSULE PO PRN (13:28)
[2019-07-15] MEDS ORDERED: NA PHOS,M-B/NA PHOS,DI-BA (ADULT) 133 ML ENEMA PR PRN (13:28)
[2019-07-15] MEDS ORDERED: DIBUCAINE 1% OINTMENT 28 GM TP PRN (13:28)
[2019-07-15] MEDS ORDERED: IBUPROFEN 800 MG TABLET ONE (13:41)
[2019-07-15] MEDS ORDERED: ACETAMINOPHEN WITH CODEINE #3 TABLET ONE (13:41)
[2019-07-15] MEDS: IBUPROFEN 800 MG TABLET PO SCH ×2 (13:45→21:07)
--- NOTE | 2019-07-15 15:43 | Delivery Summary ---
Del Sum A-C Datetime Report Generated by CPN: 07/15/2019 15:43 DELIVERY PERSONNEL DELIVERY PERSONNEL: [id number] Delivery Doctor:: Chava Rogers MD Labor and Delivery Nurse:: Indu Collazo RNfield liability generalist Nurse:: Latrice Nino RN Nursery Nurse:: Awilda Nobel RN Telephone Information Supervisor/CLINICAL LABORATORY MEDICAL DIRECTOR: Laura Vogt, ST MATERNAL INFORMATION Delivery Anesthesia: None Medications After Delivery: Pitocin Drip 20 Units/1000ml NSS Meds After Delivery Comment: pitocin 20 units in 1000mL nss Delivery QBL: 100 Maternal Complications: None LABOR SUMMARY EDC: 07/17/2019 00:00 No. Babies in Womb: 1 Attempted: Yes Labor Anesthesia: None LABOR INFORMATION Reason for Induction: Not Applicable Onset of Labor: 07/15/2019 04:00 Complete Dilatation: 07/15/2019 12:56 Oxytocin: N/A Group B Beta Strep: Negative Steroids Given: None Reason Steroids Not Administered: Not Applicable MEMBRANES Membranes Rupture Method: Artificial Rupture of Membranes: 07/15/2019 11:57 Length of Rupture (hr): 1.37 Amniotic Fluid Color: Clear Amniotic Fluid Amount: Scant Amniotic Fluid Odor: Normal STAGES OF LABOR Stage 1 hr: 8 Stage 1 min: 56 Stage 2 hr: 0 Stage 2 min: 23 Stage 3 hr: 0 Stage 3 min: 3 Total Time in Labor hr: 9 Total Time in Labor min: 22 VAGINAL DELIVERY Episiotomy: None Laceration #1: None Laceration Extension #1: N/A Sponge Count Correct: Yes Sharps Count Correct: Yes CSECTION DELIVERY Primary Indication: N/A Secondary Indication: N/A CSection Incidence: N/A Labor: N/A Elective: N/A CSection Incision: N/A BABY A INFORMATION Delivery Date/Time: 07/15/2019 13:19 Method of Delivery: Vaginal Born in Route : No : Successful Forceps: N/A Vacuum Extraction: N/A Shoulder Dystocia : No PRESENTATION/POSITION BABY A Presentation: Cephalic Cephalic Presentation: Vertex Vertex Position: Left Occipital Anterior Breech Presentation: N/A PLACENTA INFORMATION BABY A Placenta Delivery Time : 07/15/2019 13:22 Placenta Method of Delivery: Spontaneous Placenta Status: Delivered SCORES BABY A Heart Rate 1 min: >100 bpm Resp Effort 1 min: Good Cry Reflex Irritability 1 min: Cough or Sneeze or Pulls Away Muscle Tone 1 min: Active Motion Color 1 min: Body [place], Extremities Blue Resuscitation Effort 1 min: Tactile Stimulation SCORE 1 MIN: 9 Heart Rate 5 min: >100 bpm Resp Effort 5 min: Good Cry Reflex Irritability 5 min: Cough or Sneeze or Pulls Away Muscle Tone 5 min: Active Motion Color 5 min: Body [place], Extremities Blue Resuscitation Effort 5 min: N/A SCORE 5 MIN: 9 INFORMATION BABY A Gestational Age at Delivery: 39.5 Gestational Status: Full Term- 39- 40.6 Weeks Infant Outcome : Liveborn Infant Condition : Stable Sex: Female IDENTIFICATION BABY A Infant Verification Date/Time: 07/15/2019 13:41 ID Band Number: [id number] Mother's Name Verified: Yes RN Verifying : HMartín Stephenss, RN and B. Baidy, RN WEIGHT/LENGTH BABY A Birthweight (gm): 2903 Weight (lb): 6 Infant Weight (oz): 6 Length (in): 18.75 Infant Length (cm): 47.63 CORD INFORMATION BABY A No. Cord Vessels: 3 Nuchal Cord : N/A Cord Blood Taken: Yes-For Eval (Mom's Blood Type - or O+) Infant Suction: None ASSESSMENT BABY A Complications: None Physical Findings at Delivery: Within Normal Limits Infant Respirations: Appears Normal Skin to Skin: Yes Skin to Skin Time (min): 60 Anvil Worker/ALS Called : No Care By: Jalil RealCARLOS Transferred To: Remains with Mother BABY B INFORMATION : N/A SIGNATURES Signature: with User ID: [email or web address]
[2019-07-15] MEDS: DOCUSATE SODIUM 100 MG CAPSULE PO SCH (18:38)
[2019-07-15] MEDS: FERROUS SULFATE 325 MG TABLET PO SCH (18:38)
[2019-07-15] MEDS: FAMOTIDINE 20 MG TABLET PO SCH (21:08)
[2019-07-16] MEDS: IBUPROFEN 800 MG TABLET PO SCH ×3 (05:53→21:28)
[2019-07-16 07:34] LABS: HEMATOCRIT 35.9 % (36.0-47.0); MEAN CORPUSCULAR HGB CONC 33.4 g/dL (32.0-36.0); MEAN CORPUSCULAR VOLUME 87 fl (80-97); PLATELET COUNT 188 10^3/uL (150-450); RED BLOOD COUNT 4.13 10^6/uL (3.72-5.28)
[2019-07-16 07:38] LABS: WHITE BLOOD COUNT 8.5 10^3/uL (4.0-10.5)
[2019-07-16] MEDS: SENNOSIDES/DOCUSATE 8.6-50 MG 1 EACH TABLET PO SCH (10:33)
[2019-07-16] MEDS: FERROUS SULFATE 325 MG TABLET PO SCH ×2 (10:33→18:05)
[2019-07-16] MEDS: FAMOTIDINE 20 MG TABLET PO SCH ×2 (10:33→21:28)
[2019-07-16] MEDS: DOCUSATE SODIUM 100 MG CAPSULE PO SCH ×2 (10:33→18:05)
[2019-07-16] MEDS: PRENATAL VITAMIN W DHA CAPSULE PO SCH (10:33)
--- NOTE | 2019-07-16 11:05 | PDOC PROGRESS REPORT ---
Subjective-OB Progress Note for:: 07/16/19 - PP Day #1, doing well, O neg, needs Rhogam prior to d/c home, Rubella immune, breast and bottle feeding, Successful . Hx +THC Physical Exam (OB) Vital Signs: Temp Pulse Resp BP Pulse Ox 98.8 F 70 18 132/75 H 100 07/16/19 07:14 07/16/19 07:14 07/16/19 07:14 07/16/19 07:14 07/16/19 07:14 Intake & Output 07/15/19 07/16/19 07/17/19 06:59 06:59 06:59 Weight 107.1 kg - General General Appearance: Appears well, Alert In distress: None - PIH/Pre-Eclampsia Clonus: Negative Headache: Absent Epigastric Pain: No Visual Changes: No - Lochia Lochia Amount: Scant < 10 ml Lochia Color: Rubra/Red - Abdomen Description: Soft Hernia Present: No Fundal Description: Firm, Midline Fundal Height: 1/u - 2/u - Respiratory Respiratory Status: No respiratory distress - Abdominal Inspection: Normal Distension: No distension Tenderness: Nontender - Genitourinary Genitourinary Note: voiding - Extremities Upper extremity: Normal inspection - Neurological Cognition: Normal Orientation: AAOx4 - Psychological Associated symptoms: Normal affect, Normal mood - Skin Skin Temperature: Warm Skin Moisture: Dry Objective-Diagnostic Laboratory: 07/16/19 07:23 07/15/19 07/15/19 07/16/19 11:19 11:19 07:23 WBC 10.5 8.5 RBC 4.36 4.13 Hgb 12.9 12.0 Hct 37.5 35.9 L MCV 86 87 MCH 29.6 29.0 MCHC 34.4 33.4 RDW 15.3 H 15.0 H Plt Count 203 188 Seg Neutrophils % 78.9 H Blood Type O NEGATIVE Antibody Screen NEGATIVE 07/16/19 07:23 WBC RBC Hgb Hct MCV MCH MCHC RDW Plt Count Seg Neutrophils % Blood Type O NEGATIVE Antibody Screen Assessment and Plan(PN) - Assessment and Plan (1) (vaginal after ) Is this a current diagnosis for this admission?: Yes (2) Cannabis abuse Is this a current diagnosis for this admission?: Yes Plan:: ambulation encouraged. Routine PP orders - Time Spent with Patient Time with patient: Less than 15 minutes Medications reviewed and adjusted accordingly: Yes - Disposition Anticipated Discharge: Home Within: within 24 hours
[2019-07-17] MEDS: IBUPROFEN 800 MG TABLET PO SCH (06:06)
[2019-07-17 08:31] VITALS: BP 135/75
--- NOTE | 2019-07-17 09:35 | PDOC DISCHARGE SUMMARY ---
Impression - Admit/DC Date/PCP Admission Date/Primary Care Provider: 07/15/19 11:20 INEZ PELLETIER MD Discharge Date: 07/17/19 - Discharge Diagnosis (1) Cannabis abuse Is this a current diagnosis for this admission?: Yes (2) (vaginal after ) Is this a current diagnosis for this admission?: Yes (3) Upper respiratory infection Is this a current diagnosis for this admission?: Yes - Additional Information Resuscitation Status: Full Code Discharge Diet: Regular Discharge Activity: Balance Activity w/Rest, Non-Ambulatory Child Referrals: INEZ PELLETIER MD [Primary Care Provider] - Prescriptions: Ibuprofen [Motrin 800 mg Tablet] 800 mg PO Q8HP PRN #60 tablet PRN Reason: Home Medications: No122/Iron/Folic Acid [ Multi Tablet] 1 each PO DAILY 07/10/19 Sertraline HCl [Zoloft] 25 mg PO DAILY 07/10/19 Ferrous Sulfate, Dried [Iron] 1 tab PO DAILY 07/14/19 Ibuprofen [Motrin 800 mg Tablet] 800 mg PO Q8HP PRN #60 tablet 07/17/19 Results Laboratory Results: WBC 8.5 10^3/uL (4.0-10.5) 07/16/19 07:23 RBC 4.13 10^6/uL (3.72-5.28) 07/16/19 07:23 Hgb 12.0 g/dL (12.0-15.5) 07/16/19 07:23 Hct 35.9 % (36.0-47.0) L 07/16/19 07:23 MCV 87 fl (80-97) 07/16/19 07:23 MCH 29.0 pg (27.0-33.4) 07/16/19 07:23 MCHC 33.4 g/dL (32.0-36.0) 07/16/19 07:23 RDW 15.0 % (11.5-14.0) H 07/16/19 07:23 Plt Count 188 10^3/uL (150-450) 07/16/19 07:23 Lymph % (Auto) 15.4 % (13-45) 07/15/19 11:19 [place] % (Auto) 4.8 % (3-13) 07/15/19 11:19 Eos % (Auto) 0.4 % (0-6) 07/15/19 11:19 Baso % (Auto) 0.5 % (0-2) 07/15/19 11:19 Absolute Neuts (auto) 8.3 10^3/uL (1.7-8.2) H 07/15/19 11:19 Absolute Lymphs (auto) 1.6 10^3/uL (0.5-4.7) 07/15/19 11:19 Absolute Monos (auto) 0.5 10^3/uL (0.1-1.4) 07/15/19 11:19 Absolute Eos (auto) 0.0 10^3/uL (0.0-0.6) 07/15/19 11:19 Absolute Basos (auto) 0.1 10^3/uL (0.0-0.2) 07/15/19 11:19 Seg Neutrophils % 78.9 % (42-78) H 07/15/19 11:19 Urine Color YELLOW 07/15/19 09:00 Urine Appearance SLIGHTLY-CLOUDY 07/15/19 09:00 Urine pH 7.0 (5.0-9.0) 07/15/19 09:00 Ur Specific [place] 1.015 07/15/19 09:00 Urine Protein NEGATIVE mg/dL (NEGATIVE) 07/15/19 09:00 Urine Glucose (UA) NEGATIVE mg/dL (NEGATIVE) 07/15/19 09:00 Urine Ketones NEGATIVE mg/dL (NEGATIVE) 07/15/19 09:00 Urine Blood NEGATIVE (NEGATIVE) 07/15/19 09:00 Urine Nitrite NEGATIVE (NEGATIVE) 07/15/19 09:00 Urine Bilirubin NEGATIVE (NEGATIVE) 07/15/19 09:00 Urine Urobilinogen NEGATIVE mg/dL (<2.0) 07/15/19 09:00 Ur Leukocyte Esterase TRACE (NEGATIVE) H 07/15/19 09:00 Urine Ascorbic Acid NEGATIVE (NEGATIVE) 07/15/19 09:00 Urine Opiates Screen NEGATIVE 07/15/19 09:00 Urine Methadone Screen NEGATIVE 07/15/19 09:00 Ur Barbiturates Screen NEGATIVE 07/15/19 09:00 Ur Phencyclidine Scrn NEGATIVE 07/15/19 09:00 Ur Amphetamines Screen NEGATIVE 07/15/19 09:00 U Benzodiazepines Scrn NEGATIVE 07/15/19 09:00 Urine Cocaine Screen NEGATIVE 07/15/19 09:00 U Marijuana (THC) Screen UNCONFIRMED POSITIVE 07/15/19 09:00 RPR NONREACTIVE (NONREACTIVE) 07/15/19 11:19 Blood Type O NEGATIVE 07/16/19 07:23 Antibody Screen NEGATIVE 07/15/19 11:19 Screen NEGATIVE 07/16/19 07:23
[2019-07-17] MEDS: DOCUSATE SODIUM 100 MG CAPSULE PO SCH (10:38)
[2019-07-17] MEDS: SENNOSIDES/DOCUSATE 8.6-50 MG 1 EACH TABLET PO SCH (10:38)
[2019-07-17] MEDS: FAMOTIDINE 20 MG TABLET PO SCH (10:38)
[2019-07-17] MEDS: FERROUS SULFATE 325 MG TABLET PO SCH (10:38)
[2019-07-17] MEDS: PRENATAL VITAMIN W DHA CAPSULE PO SCH (10:38)
== END 2019-07-17 12:40 | disposition home or self-care (01) | DRG 806 ==
LOC: LC 08:54 → LR 11:20 → 2S 16:47
PROVIDERS: ADMIT Obstetrics & Gynecology Gynecology; ATTEND Obstetrics & Gynecology Gynecology
PROC: 10E0XZZ Delivery of Products of Conception, External Approach (ICD-10-PCS; principal; 2019-07-15)
PROC: 3E0234Z Introduction of Serum, Toxoid and Vaccine into Muscle, Percutaneous Approach (ICD-10-PCS; 2019-07-16)
DX: O34.211 Maternal care for low transverse scar from previous cesarean delivery (principal); O99.324 Drug use complicating childbirth; Z37.0 Single live birth; O36.0930 Maternal care for other rhesus isoimmunization, third trimester, not applicable or unspecified; N85.8 Other specified noninflammatory disorders of uterus; O99.344 Other mental disorders complicating childbirth; F41.9 Anxiety disorder, unspecified; F12.10 Cannabis abuse, uncomplicated; O99.52 Diseases of the respiratory system complicating childbirth; J06.9 Acute upper respiratory infection, unspecified; Z3A.39 39 weeks gestation of pregnancy
CPT/HCPCS: 36415; 59025; 80307; 81005; 85025; 85027; 85461; 86592; 86850; 86900; 86901; J2590; J2790; J3490

== ENCOUNTER 2020-01-26 11:04 | Emergency (ER) | payer MEDICAID ==
--- NOTE | 2020-01-26 11:38 | ER Document Report ---
ED Medical Screen (RME) - General Chief Complaint: Abdominal Pain Stated Complaint: ABDOMINAL PAIN Time Seen by Provider: 01/26/20 11:31 Primary Care Provider: INEZ PELLETIER MD [Primary Care Provider] - Follow up as needed TRAVEL OUTSIDE OF THE [place] IN LAST 30 DAYS: No - HPI Notes: 01/26/20 11:38 29-year-old female presents emergency room for complaints of lower abdominal pa in left greater than right for the last 3 days. States pain is a constant dull ache. Better with laying still, nothing makes it worse. Denies worse after eating. Denies any vaginal bleeding or discharge. Last bowel movement was this morning. Patient does have an IUD, last menstrual cycle was October 2019. Patient does have a history of ovarian cyst in the past, she did have an appendectomy approximately 9 years ago. Denies any fevers or chills, nausea vomiting diarrhea, flank pain. Denies any chest pain or shortness of breath. Was unable to get into her primary care provider today. I have greeted and performed a rapid initial assessment of this patient. A comprehensive ED assessment and evaluation of the patient, analysis of test results and completion of the medical decision making process will be conducted by additional ED providers. PHYSICAL EXAMINATION: GENERAL: Well-appearing, well-nourished and in no acute distress. CV: s1, s2 regular LUNGS: No respiratory distress abd: L>R abd pain on palpation, no cva tenderness appreciated bilaterally - Related Data Allergies/Adverse Reactions: morphine [Morphine] Adverse Reaction (Mild, Verified 01/26/20 11:31) Dystonia Past Medical History Renal/ Medical History: Denies: Hx Peritoneal Dialysis Psychiatric Medical History: Reports: Hx Depression Past Surgical History: Reports: Hx Appendectomy, Hx Section, Hx Orthopedic Surgery - R ankle, spine - Immunizations Hx Diphtheria, Pertussis, Tetanus Vaccination: Yes Physical Exam - Vital signs Vitals: Temp Pulse Resp BP Pulse Ox 99.2 F 89 14 140/72 H 99 01/26/20 11:08 01/26/20 11:08 01/26/20 11:01/26/20 11:01/26/20 11:08 Course - Vital Signs Vital signs: Temp Pulse Resp BP Pulse Ox 99.2 F 89 14 140/72 H 99 01/26/20 11:08 01/26/20 11:08 01/26/20 11:08 01/26/20 11:08 01/26/20 11:08 Doctor's Discharge - Discharge Referrals: INEZ PELLETIER MD [Primary Care Provider] - Follow up as needed
[2020-01-26 12:36] LABS: ABSOLUTE LYMPHOCYTES (AUTO) 1.6 10^3/uL (0.5-4.7); ABSOLUTE MONOCYTES (AUTO) 0.5 10^3/uL (0.1-1.4); ABSOLUTE NEUT (AUTO) 6.7 10^3/uL (1.7-8.2); BASOPHILS % (AUTO) 0.5 % (0-2); EOSINOPHILS % (AUTO) 0.5 % (0-6); HEMATOCRIT 41.5 % (36.0-47.0); HEMOGLOBIN 14.4 g/dL (12.0-15.5); LYMPHOCYTES % (AUTO) 17.8 % (13-45); MEAN CORPUSCULAR HEMOGLOBIN 30.4 pg (27.0-33.4); MEAN CORPUSCULAR HGB CONC 34.8 g/dL (32.0-36.0); MEAN CORPUSCULAR VOLUME 87 fl (80-97); MONOCYTES % (AUTO) 5.3 % (3-13); PLATELET COUNT 232 10^3/uL (150-450); RED BLOOD COUNT 4.75 10^6/uL (3.72-5.28); RED CELL DISTRIBUTION WIDTH 12.6 % (11.5-14.0); SEGMENTED NEUTROPHILS % (AUTO) 75.9 % (42-78); TOTAL CELLS COUNTED % (AUTO) 100 %; WHITE BLOOD COUNT 8.8 10^3/uL (4.0-10.5)
[2020-01-26 12:40] LABS: APPEARANCE,URINE CLEAR; BILIRUBIN,URINE NEGATIVE (NEGATIVE); COLOR,URINE YELLOW; GLUCOSE, URINE NEGATIVE (NEGATIVE); KETONES,URINE NEGATIVE (NEGATIVE); LEUKOCYTE ESTERASE,URINE NEGATIVE (NEGATIVE); NITRITE,URINE NEGATIVE (NEGATIVE); PROTEIN,URINE NEGATIVE (NEGATIVE); URINE SPECIFIC GRAVITY 1.013; UROBILINOGEN,URINE NEGATIVE mg/dL (<2.0)
[2020-01-26 12:52] LABS: ALBUMIN 4.3 g/dL (3.5-5.0); ALKALINE PHOSPHATASE 64 U/L (38-126); ANION GAP 5 (5-19); ASPARTATE AMINO TRANSFERASE 21 U/L (14-36); BILIRUBIN,TOTAL 0.4 mg/dL (0.2-1.3); BLOOD UREA NITROGEN 9 mg/dL (7-20); CALCIUM 9.4 mg/dL (8.4-10.2); CARBON DIOXIDE 27 mmol/L (22-30); CHLORIDE 105 mmol/L (98-107); GLUCOSE 95 mg/dL (75-110); POTASSIUM 4.4 mmol/L (3.6-5.0); TOTAL PROTEIN 7.3 g/dL (6.3-8.2)
--- NOTE | 2020-01-26 14:11 | RADIOLOGY REPORT (SQ) ---
EXAM DESCRIPTION: CT ABD/PELVIS WITH IV ONLY IMAGES COMPLETED DATE/TIME: 01/26/2020 1:58 pm REASON FOR STUDY: L>R lower abd pain x 3 days COMPARISON: None. TECHNIQUE: CT scan of the abdomen and pelvis performed using helical scanning technique with dynamic intravenous contrast injection. No oral contrast. Images reviewed with lung, soft tissue, and bone windows. Reconstructed coronal and sagittal MPR images reviewed. Delayed images for evaluation of the urinary system also acquired. All images stored on PACS. All CT scanners at this facility use dose modulation, iterative reconstruction, and/or weight based d osing when appropriate to reduce radiation dose to as low as reasonably achievable (ALARA). [facility]: Dose Right [facility]: CareDose [facility]: Dose Right [facility]: Teradose 4D [facility]: Trly Uniq CONTRAST TYPE AND DOSE: contrast/concentration: Isovue mmol/ml; Total Contrast Delivered: 99.0 ml; Total Saline Delivered: 68.9 ml RENAL FUNCTION: Creatinine 0.8 RADIATION DOSE: CT Rad equipment meets quality standard of care and radiation dose reduction techniq ues were employed. CTDIvol: 15.9 - 19.0 mGy. DLP: 1949 mGy-cm.. LIMITATIONS: None. FINDINGS: LOWER CHEST: No significant findings. No nodules or infiltrates. LIVER: Normal size. No masses. No dilated ducts. SPLEEN: Normal size. No focal lesions. PANCREAS: No masses. No significant calcifications. No adjacent inflammation or peripancreatic fluid collections. Pancreatic duct not dilated. GALLBLADDER: No identified stones by CT criteria. No inflammatory changes to suggest cholecystitis. ADRENAL GLANDS: No significant masses or asymmetry. RIGHT KIDNEY AND URETER: No solid masses. No significant calcifications. No hydronephrosis or hyd roureter. LEFT KIDNEY AND URETER: No solid masses. No significant calcifications. No hydronephrosis or hydr oureter. AORTA AND VESSELS: No aneurysm. No dissection. Renal arteries, SMA, celiac without stenosis. RETROPERITONEUM: No retroperitoneal adenopathy, hemorrhage or masses. BOWEL AND PERITONEAL CAVITY: No masses or inflammatory changes. No free fluid or peritoneal masses. No CT evidence of bowel obstruction APPENDIX: Surgically absent PELVIS: No mass. No free fluid. Normal bladder. Normal size female pelvic organs. IUD in the uteru s ABDOMINAL WALL: No masses. No hernias. BONES: No significant or acute findings. OTHER: No other significant finding. IMPRESSION: Post appendectomy. Otherwise unremarkable CT scan of the abdomen pelvis with IV contrast only TECHNICAL DOCUMENTATION: JOB ID: [id number] Quality ID # [id number]: Final reports with documentation of one or more dose reduction techniques (e.g., Au tomated exposure control, adjustment of the mA and/or kV according to patient size, use of iterative reconstruction technique) 2010 [employer]- All Rights Reserved Reading location - IP/workstation name: [email or web address]
--- NOTE | 2020-01-26 16:21 | ER Document Report ---
ED General - General Chief Complaint: Lower Abdominal Pain Stated Complaint: ABDOMINAL PAIN Time Seen by Provider: 01/26/20 11:31 Primary Care Provider: INEZ PELLETIER MD [EMERITUS] - Follow up as needed Mode of Arrival: Ambulatory Information source: Patient Notes: 29-year-old woman presents to the emergency department with dull achy pain in the left lower abdominal area. She is concerned that her IUD may have moved. She denies nausea vomiting or change in bowel function. Her appetite is good and she has had no other complications. TRAVEL OUTSIDE OF THE [place] IN LAST 30 DAYS: No - Related Data Allergies/Adverse Reactions: morphine [Morphine] Adverse Reaction (Mild, Verified 01/26/20 11:31) Dystonia Past Medical History - Social History Smoking Status: Former Smoker Chew tobacco use (# tins/day): No Frequency of alcohol use: None Drug Abuse: None Family History: Reviewed & Not Pertinent, Other Patient has homicidal ideation: No Renal/ Medical History: Denies: Hx Peritoneal Dialysis Psychiatric Medical History: Reports: Hx Depression - anxiety Past Surgical History: Reports: Hx Appendectomy, Hx Section, Hx Orthopedic Surgery - R ankle, spine - Immunizations Hx Diphtheria, Pertussis, Tetanus Vaccination: Yes Hx Pneumococcal Vaccination: 07/26/11 Review of Systems - Review of Systems Notes: Constitutional: Negative for fever. HENT: Negative for sore throat. Eyes: Negative for visual changes. Cardiovascular: Negative for chest pain. Respiratory: Negative for shortness of breath. Gastrointestinal: See HPI Genitourinary: Negative for dysuria. Musculoskeletal: Negative for back pain. Skin: Negative for rash. Neurological: Negative for headaches, weakness or numbness. 10 point ROS negative except as marked above and in HPI. Physical Exam - Vital signs Vitals: Temp Pulse Resp BP Pulse Ox 99.2 F 89 14 140/72 H 99 01/26/20 11:08 01/26/20 11:08 01/26/20 11:08 01/26/20 11:08 01/26/20 11:08 - Notes Notes: PHYSICAL EXAMINATION: Physical Exam: General: Well-nourished well-developed 29-year-old woman in no acute distress HEENT: NC/AT, pupils equal round and reactive to light, MM moist,nares clear, oropharynx clear, airway patent Neck: supple, no adenopathy, no masses. Good range of motion Lungs: clear, no wheezing, no rales no rhonchi CVS: Regular rate and rhythm no murmur gallop or rub Abdomen: Soft, active, mild tenderness in the left lower quadrant, no masses, no hepatosplenomegaly Ext: No edema, clubbing or cyanosis. Neuro: Alert and responsive, moving all 4 extremities on command, cranial nerves intact, no focal findings Skin: Intact no open lesions, no rash Course - Vital Signs Vital signs: Temp Pulse Resp BP Pulse Ox 99.2 F 89 16 126/63 H 96 01/26/20 11:32 01/26/20 11:08 01/26/20 13:27 01/26/20 13:27 01/26/20 13:27 - Laboratory Result Diagrams: 01/26/20 12:15 01/26/20 12:15 - Diagnostic Test Radiology reviewed: Image reviewed, Reports reviewed - CT of the abdomen and pelvis with IV contrast: Acute intra-abdominal pathology, IUD in place. Discharge - Discharge Clinical Impression: Left sided abdominal pain Condition: Good Disposition: HOME, SELF-CARE Additional Instructions: You are seen in the emergency department today with a pain in the left lower abdominal/pelvic region, CT scan of the abdomen pelvis is negative, the IUD is in its normal position, your symptoms may be related to ovulation/mittelschmerz. Using an anti-inflammatory pain medication should help to control the discomfort. If you have any further difficulties or other concerns you may return to the emergency department if needed HOME CARE INSTRUCTIONS & INFORMATION: Thank you for choosing us for your medical needs. We hope you're satisfied with the care you received. After you leave, you must properly care for your problem and, at the same time, observe its progress. Any condition can change. Some illnesses can change rapidly over hours or days. If your condition worsens, return to the Emergency Department or see your physician promptly. ABOUT YOUR X-RAYS AND EKG'S: If you had an EKG or X-rays taken, they have been read by the Emergency Physician. The X-rays and EKG's will also be read by a Radiologist or Armored Car Guard within 24 hours. If discrepancies are noted, you will be notified by telephone. Please be certain the ED has a correct telephone number & address where you can be reached. Also, realize that some fractures or abnormalities do not show up on initial X-rays. If your symptoms continue, see your physician. ABOUT YOUR LABORATORY TEST: If you had laboratory tests, the results have been reviewed by the Emergency Physician. Some test results (for example cultures) may not be available for several days. You will be contacted if any test result shows you need additional treatment. Please be certain the ED has a correct telephone number and address where you can be reached. ABOUT YOUR MEDICATIONS: You will receive instructions on how to take your me dicine on the prescription label you receive. Additional information may be provided by the Pharmacy. If you have questions afterwards, call the ED for clarification or further instructions. Some prescribed medications may cause drowsiness. Do not perform tasks such as driving a car or operating machinery without consulting your Pharmacist. If you feel you need a refill of pain medication, your condition will need re-evaluation. Please do not call for a refill of any medication. ABOUT YOUR SIGNATURE: Signature of this document acknowledges to followin. Understanding that you received emergency treatment and that you may be released before al medical problems are known or treated. Please be certain the ED has a correct phone number & address where you can be reached. 2. Acknowledgement that you will arrange for follow-up care as recommended. 3. Authorization for the Emergency Physician to provide information to your follow-up Physician in order to maximize your care. AT ANY TIME, IF YOUR SYMPTOMS CHANGE SIGNIFICANTLY OR WORSEN OR YOU DEVELOP NEW SYMPTOMS, RETURN TO THE EMERGENCY DEPARTMENT IMMEDIATELY FOR RE-EVALUATION. OUR GOAL IS TO PROVIDE EXCELLENT MEDICAL CARE! WE HOPE THAT WE HAVE MET YOUR EXPECTATIONS DURING YOUR EMERGENCY DEPARTMENT VISIT AND THAT YOU FEEL YOU HAVE RECEIVED EXCELLENT CARE! Prescriptions: Naproxen [Naprosyn] 500 mg PO BID #20 tablet Referrals: INEZ PELLETIER MD [EMERITUS] - Follow up as needed
[2020-01-26 17:32] VITALS: BP 120/82
== END 2020-01-26 17:32 | disposition home or self-care (01) ==
LOC: ER 11:04
DX: R10.30 Lower abdominal pain, unspecified (principal); Z97.5 Presence of (intrauterine) contraceptive device; Z87.891 Personal history of nicotine dependence; Z90.49 Acquired absence of other specified parts of digestive tract
CPT/HCPCS: 36415; 74177; 80053; 81001; 81025; 83690; 85025; 99284